=== PATIENT | male | born 1970 | race Hispanic/Latino ===

== ENCOUNTER 2020-11-03 09:57 | Emergency (ER) | payer SELFPAY ==
[~2020-11-03] VITALS: Ht 172.7 cm; Wt 81.0 kg
[~2020-11-03 09:57] MED LIST: ATENOLOL25 MG PO; AUGMENTIN875TAB PO; HYDROCHLOROT25 MG PO; METHIMAZOLE10 MG PO; TAPAZOLE10 MG PO; ULTRAM50 M1 PO
[2020-11-03 12:16] LABS: HEMATOCRIT 47.1 % (39.0-50.0); HEMOGLOBIN 15.3 g/dl (14.0-18.0); IMMATURE GRANULOCYTES 0.3 % (0.0-5.0); MEAN CELL VOLUME 81.6 fL CALC (80.0-100.0); MEAN CORPUSCULAR HGB 26.5 pG CALC (26.0-32.0); MEAN CORPUSCULAR HGB CONC 32.5 g/dL CAL (32.0-36.0); NEUT# 5.19 thou/uL (1.82-7.42); RED BLOOD COUNT 5.77 mill/uL (4.70-6.10); RED CELL DISTRI WIDTH 14.6 % (11.5-15.5)
[2020-11-03 12:28] LABS: ALKALINE PHOSPHATASE 206 u/l (38-126); ANION GAP 10 (6-22 (CALC)); BILIRUBIN, TOTAL 1.4 mg/dL (0.0-1.4); BUN 12 mg/dL (9-20); BUN/CREATININE RATIO 26 (12-20 (CALC)); CARBON DIOXIDE 28 mmol/l (22-30); CHLORIDE 103 mmol/l (95-108); CREATININE 0.4 mg/dL (0.7-1.3); GFR > 60 ML/MIN (>=60 (CALC)); GFR FOR AFR.AMER. > 60 ML/MIN (>=60 (CALC)); SGOT/AST 47 u/l (17-59); SODIUM 140 mmol/l (137-146); TOTAL PROTEIN 7.7 g/dL (6.3-8.2)
[2020-11-03 12:32] LABS: C-REACTIVE PROTEIN 1.2 mg/dL (0-0.9)
[2020-11-03 12:56] LABS: TSH, 3RD GENERATION < 0.02 uIU/mL (0.47 - 4.68)
[2020-11-03 12:58] LABS: POTASSIUM 1.3 mmol/l (3.5-5.1)
[2020-11-03 13:22] LABS: URINE BILIRUBIN - DIPSTICK NEGATIVE (NEGATIVE); URINE BLOOD DIPSTICK TRACE-INTACT (NEGATIVE); URINE COLOR YELLOW; URINE GLUCOSE - DIPSTICK NEGATIVE (NEGATIVE); URINE KETONE TRACE mg/dL (NEGATIVE); URINE LEUK ESTERASE NEGATIVE (NEGATIVE); URINE NITRITE - DIPSTICK NEGATIVE (Negative); URINE PROTEIN - DIPSTICK 30 mg/dL (NEG-TRACE); URINE SPECIFIC GRAVITY 1.025; URINE UROBILINOGEN - DIPSTICK 0.2 E.U./dL (0.2)
[2020-11-03 15:05] VITALS: BP 128/62
== END 2020-11-03 15:05 | disposition short-term general hospital (02) | DRG 948 ==
LOC: ED 09:57
PROVIDERS: Emergency Medicine
DX: R53.1 Weakness (principal); E05.90 Thyrotoxicosis, unspecified without thyrotoxic crisis or storm; E87.6 Hypokalemia; I10 Essential (primary) hypertension; T46.5X6A Underdosing of other antihypertensive drugs, initial encounter; T38.2X6A Underdosing of antithyroid drugs, initial encounter; Z91.128 Patient's intentional underdosing of medication regimen for other reason; Z20.822 Contact with and (suspected) exposure to COVID-19

== ENCOUNTER 2024-09-24 05:21 | Inpatient (IN) | payer SELFPAY ==
--- NOTE | 2024-09-23 19:30 | NUR ---
RECEIVED PATIENT IN BEDSIDE REPORT. PATIENT IS REPORTED TO BE SCORING WITH INTERMITTENT SHAKING AND REQUIRES MEDICATION WITH LIBRIUM AND ATIVAN ON ASSESSMENT. AT THIS TIME PATIENT IS STABLE INTERMITTENTLY AWAKE. ITALIAN SPEAKING PATIENT - CONVERSATIONALLY EDUCATED PATIENT ON NOT GETTING UP UNASSISTED, OFFERED ASSITANCE WITH URINAL AND OFFERED WATER FOR COMFORT. PATIENT DECLINED URINAL, ACCEPTED WATER. RESTING COMFORTABLY WITH BED ALARM ENGAGED.
[2024-09-24] VITALS (45 sets, daily range): BP systolic 107–150; BP diastolic 53–100
[~2024-09-24] VITALS: Ht 172.7 cm; Wt 97.3 kg
[~2024-09-24 05:21] MED LIST changes: +BL ASPIRIN325 MG PO; +PROPRANOLOL HCL60 MG PO
--- NOTE | 2024-09-24 05:21 | NUR ---
PT TO ROOM #4 VIA EMS STRETCHER. PT TRIAGE COMPLETED. MD NOTIFIED OF PT STATUS. PT NOTED WITH MODERATE ANXIETY, PT STATES HX OF ETOH ABUSE, PT STATES HE HAD ONE ALCOHOLIC BEVRAGE X3 DAYS AGO. PT STATES THAT THE SALES SUPPORT ADMINISTRATOR TOLD HIM HE WAS ATTEMPTING TO GET INTO NEIGHBOR'S VEHICLE, PT STATES HE DOESN'T REMEMBER DOING SO. PT STATES HE FEELS UNWELL, C/O SOB, CHEST PAIN, AND FAST HEART RATE.
[2024-09-24] MEDS ORDERED: chlordiazePOXIDE HCL 25 MG CAP PO ONE (05:35)
[2024-09-24] MEDS ORDERED: SODIUM CHLORIDE 0.9% 250 ML IV PRN (05:35)
[2024-09-24] MEDS ORDERED: DILTIAZEM HCL 125 MG in SODIUM CHLORIDE 0.9% 100 ML IV ONE (05:35)
[2024-09-24] MEDS ORDERED: dilTIAZem HCL 50 MG/10 ML SDV IV ONE (05:35)
[2024-09-24 05:46] LABS: BASO% 0.5 % (0-3); EOS% 0.9 % (0-8); HEMATOCRIT 43.8 % (39.0-50.0); HEMOGLOBIN 14.2 g/dl (14.0-18.0); IMMATURE GRANULOCYTES 0.2 % (0.0-5.0); LYMPH% 15.8 % (15-41); MEAN CORPUSCULAR HGB 29.3 pG CALC (26.0-32.0); MEAN CORPUSCULAR HGB CONC 32.4 g/dL CAL (32.0-36.0); MONO% 7.9 % (2-13); NEUT# 4.35 thou/uL (1.82-7.42); NEUT% 74.7 % (42-76); RED BLOOD COUNT 4.85 mill/uL (4.70-6.10); RED CELL DISTRI WIDTH 15.8 % (11.5-15.5)
[2024-09-24 05:48] LABS: MEAN CELL VOLUME 90.3 fL CALC (80.0-100.0)
--- NOTE | 2024-09-24 06:00 | NUR ---
PT CARDIZEM TITRATED TO 15MG/HR PER FACILITY PROTOCOL/MD ORDERS.
[2024-09-24 06:02] LABS: ALBUMIN 3.9 g/dL (3.2-5.0); BUN 13 mg/dL (9-20); BUN/CREATININE RATIO 32 (12-20 (CALC)); CHLORIDE 108 mmol/l (95-108); CREATININE 0.4 mg/dL (0.7-1.3); ESTIMATED GFR 130 ML/MIN (>=90 (CALC)); ETHYL ALCOHOL 0 mg/dl (0-30); SGOT/AST 60 u/l (17-59); SODIUM 143 mmol/l (137-146); TOTAL PROTEIN 7.8 g/dL (6.3-8.2)
[2024-09-24 06:07] LABS: ALKALINE PHOSPHATASE 483 u/l (38-126); ANION GAP 16 (6-22 (CALC)); BILIRUBIN, TOTAL 2.6 mg/dL (0.2-1.3); CARBON DIOXIDE 22 mmol/l (22-30); INTERNATIONAL NORMALIZED RATIO 1.3 RATIO (0.7-1.3); POTASSIUM 3.3 mmol/l (3.5-5.1)
[2024-09-24 06:11] LABS: PROTHROMBIN TIME 13.4 SECONDS (9.0-12.5)
[2024-09-24 06:20] LABS: D-DIMER 0.59 mg/L (0.19-0.60)
[2024-09-24] MEDS ORDERED: LORazepam 2 MG/ML IV ONE (06:30)
[2024-09-24] MEDS ORDERED: POTASSIUM CHLORIDE 20 MEQ/TAB PO ONE (06:45)
--- NOTE | 2024-09-24 06:52 | NUR ---
PT MEDICATED PER MD ORDERS. PT CARDIZEM DRIP RUNNING AT 15ML PER HOUR. PT LIGHTS DIIMMED FOR COMFORT.
--- NOTE | 2024-09-24 07:02 | NUR ---
PATIENT AWAKE AND STABLE LAYING IN BED. NO DISTRESS NOTED. PATIENT DENIES ANY PAIN. PATIENT STATES THAT HE WANTS TO SLEEP. WILL CONTINUE TO MONITOR.
[2024-09-24] MEDS ORDERED: ACETAMINOPHEN 325 MG/TAB PO PRN (07:40)
[2024-09-24] MEDS ORDERED: SODIUM CHLORIDE 0.9% 1,000 ML IV PRN (07:40)
[2024-09-24] MEDS ORDERED: MAGNESIUM HYDROXIDE 30 ML UDC PO PRN (07:40)
[2024-09-24] MEDS ORDERED: chlordiazePOXIDE HCL 25 MG CAP PO PRN (07:45)
[2024-09-24] MEDS ORDERED: LORazepam 2 MG/ML IV PRN (07:45)
[2024-09-24] MEDS ORDERED: MULTIPLE VITAMIN 10 ML,THIAMINE HCL 100 MG in DEXTROSE 5% / 0.9% NACL 1,000 ML IV ONE (08:00)
--- NOTE | 2024-09-24 08:10 | NUR ---
PATIENT SLEEPING IN BED. NO DISTRESS NOTED. WILL CONTINUE TO MONITOR.
[2024-09-24] MEDS ORDERED: MULTIPLE VITAMIN 10 ML,THIAMINE HCL 100 MG in SODIUM CHLORIDE 0.9% 1,000 ML IV SCH (09:00)
[2024-09-24] MEDS ORDERED: METHIMAZOLE 5 MG/TAB PO SCH (09:00)
[2024-09-24] MEDS ORDERED: METOPROLOL SUCCINATE 50 MG/TAB PO SCH (09:00)
[2024-09-24] MEDS ORDERED: ENOXAPARIN SODIUM 100 MG/ML SYR SC SCH (09:00)
--- NOTE | 2024-09-24 09:18 | NUR ---
PATIENT AWAKE AND LAYING IN BED. PATIENT DENIES ANY PAIN. NO DISTRESS NOTED. WILL CONTINUE TO MONITOR.
--- NOTE | 2024-09-24 09:52 | NUR ---
PATIENT BROUGHT TO UNIT BY ER NURSE VIA STRETCHER. HE AMBULATED TO BED WITH ASSISTANCE. HE IS A/O X3. AFIB INT THE 120S TO 130S NOTED ON THE MONITOR. #20 NOTED IN THE LEFT AC RUNNING CARDIZEM @15. #18 NOTED IN THE LEFT FOREARM RUNNING A BANANA BAG AT THIS TIME. LUNGS CTA. BOWEL SOUNDS ACTIVE IN ALL FOUR QUADS. SKIN INTACT. NO ACUTE DISTRESS NOTED AT THIS TIME. BED LOCKED, IN LOW POSITION, CALL LIGHT WITHIN REACH.
--- NOTE | 2024-09-24 10:16 | NUR ---
TRANSPORTED TO ICU BY NURSE. PATIENT AWAKE AND ALERT. NO DISTRESS NOTED. PATIENT AMBULATED TO BED WITH ASSISTANCE. REPORT GIVEN TO HAYES GUZMÁN.
--- NOTE | 2024-09-24 11:30 | NUR ---
PATIENT NOTED TO BE AGITATED/RESTLESS, WILL MEDICATE ACCORDING TO EMAR.
--- NOTE | 2024-09-24 12:00 | NUR ---
ROUNDING COMPLETE. ASSESSMENT UNCHANGED. WILL CONTINUE TO MONITOR.
[2024-09-24] MEDS ORDERED: DILTIAZEM HCL 125 MG in SODIUM CHLORIDE 0.9% 100 ML IV PRN (13:45)
--- NOTE | 2024-09-24 14:00 | NUR ---
PATIENT LYING IN BED RESTING WITH EYES CLOSED. VITAL SIGNS STABLE. WILL CONTINUE WITH PLAN OF CARE.
--- NOTE | 2024-09-24 15:34 | NUR ---
PATIENT ASSISSTED TO BEDSIDE COMODE WITH MAX ASSIST. NO OTHER CONCERNS AT THIS TIME. TEMP 99, WILL RECHECK IN 30 MINUTES. AFIB ON THE MONITOR. WILL CONTINUE WITH PLAN OF CAR.
--- NOTE | 2024-09-24 16:43 | NUR ---
TEMP RECHECK 98.8
--- NOTE | 2024-09-24 18:09 | NUR ---
PATIENT UP TO THE SIDE OF THE BED EATING DINNER. DENIES CONCERNS AT THIS TIME. WILL REPLACE MONITOR LEADS AFTER DINNER REQUESTED BY PATIENT.
--- NOTE | 2024-09-24 21:58 | NUR ---
CIWA SCORE >20. MEDICATED WITH ATIVAN PER MD ORDERS. REPOSITIONED IN BED. PATIENT VERY AGITATED WITH VISIBLY NONEXTENSION SHAKES. REASSESSMENT IN ONE HOUR.
--- NOTE | 2024-09-24 22:52 | NUR ---
PATIENT CONTINUES TO SCORE >20. LIBRIUM ADMINISTERED ORDERED. REASSESSMENT TO BE COMPLETED IN ONE HOUR.
[2024-09-25] VITALS (41 sets, daily range): BP systolic 105–148; BP diastolic 62–109
--- NOTE | 2024-09-25 | NUR ---
PATIENT CIWA SCORE SIGNIFICANTLY REDUCED. PRESENTLY REDIRECTABLE WITH REDUCTION IN SYMPTOMS. PATIENT REMAINS STABLE WITH BED ALARM ENGAGED.
--- NOTE | 2024-09-25 02:23 | NUR ---
PATIENT OBSERVED SLEEPING, TALKING IN SLEEP AND COUGHING INTERMITTENTLY WITH NO WRETCHING OR N/V NOTED AT THIS TIME. BED ALARM ENGAGED
--- NOTE | 2024-09-25 04:25 | NUR ---
PATIENT REMAINS AT DESIREABLE LEVEL OF SYMPTOMS AT THIS TIME. PT CONTINUES TO REQUIRE CLOSE MONITORING.
--- NOTE | 2024-09-25 04:56 | NUR ---
PATIENT INCREASINGLY SYMPTOMATIC, ADMINISTERED LIBRIUM PER PRN MD ORDER. JENNIFER BLOOD FOR LAB FROM #18G IV SITE TO REDUCE STIMULATION IN ENVIRONMENT. ASSISTED TO REPOSITION, BED ALARM ENGAGED. PATIENT STABLE AT THIS TIME.
[2024-09-25 05:19] LABS: HEMOGLOBIN 12.5 g/dl (14.0-18.0); MEAN CELL VOLUME 88.8 fL CALC (80.0-100.0); MEAN CORPUSCULAR HGB 29.8 pG CALC (26.0-32.0); MEAN CORPUSCULAR HGB CONC 33.6 g/dL CAL (32.0-36.0); RED BLOOD COUNT 4.19 mill/uL (4.70-6.10); RED CELL DISTRI WIDTH 16.6 % (11.5-15.5)
[2024-09-25 05:42] LABS: BILIRUBIN, TOTAL 2.8 mg/dL (0.2-1.3); CREATININE 0.4 mg/dL (0.7-1.3); MAGNESIUM 1.6 mg/dL (1.6-2.3); POTASSIUM 3.6 mmol/l (3.5-5.1); TOTAL PROTEIN 6.5 g/dL (6.3-8.2)
[2024-09-25 05:43] LABS: HEMATOCRIT 37.2 % (39.0-50.0)
--- NOTE | 2024-09-25 06:23 | NUR ---
PATIENT REASSESSED POST MEDICATION AND IS RESTING COMFORTABLY AT THIS TIME WITH REDUCTION IN SYMPTOMS. PATIENT REPOSITIONED BUT CONTINUES TO SCOOT DOWN IN THE BED, APPEARS COMFORTABLE WITH MINIMAL ISSUES NO DISTRESS. BED ALARM ENGAGED.
--- NOTE | 2024-09-25 08:00 | NUR ---
PATIENT LYING IN BED. PATIENT ALERT AND ORIENTED TO PERSON AND PLACE. DENIES PAIN AT THIS TIME. LUNGS CLEAR TO ASCULTATION. BREATHING EVEN AND LABORED ON ROOM AIR. AFIB ON THE MONITOR WITH CARDIZEM GTT AT 15 MG/HR. STRONG PERIPHERAL PULSES. SAFETY MEASURES IN PLACE INCLUDING BED IN LOW POSITION AND CALL LIGHT RESTING NEXT TO L HAND. NO APPARENT DISTRESS NOTED. WILL CONTINUE WITH PLAN OF CARE.
[2024-09-25] MEDS ORDERED: DIATRIZOATE MEGLUMINE & SODIUM 30 ML/BTL PO ONE (09:05)
[2024-09-25] MEDS ORDERED: Barium Sulfate (Readi-Cat 2 Berry) 450 ML/BTL PO ONE (09:05)
[2024-09-25] MEDS ORDERED: ISOVUE-300 (Iopamidol) 100 ML SDV IV ONE (09:05)
[2024-09-25] MEDS ORDERED: Barium Sulfate (Readi-Cat 2 Banana) 450 ML/BTL PO ONE (09:05)
[2024-09-25 09:12] LABS: AMYLASE 65 u/l (30-110); LIPASE 70 u/l (23-300)
[2024-09-25] MEDS ORDERED: METOPROLOL SUCCINATE 50 MG/TAB PO SCH (09:30)
[2024-09-25] MEDS ORDERED: DIATRIZOATE MEGLUMINE & SODIUM 30 ML/BTL PO SCH (10:00)
--- NOTE | 2024-09-25 10:00 | NUR ---
PATIENT APPEARS TO BE RESTING WITH EYES CLOSED. NO APPARENT DISTRESS NOTED. WILL CONTINUE WITH PLAN OF CARE.
--- NOTE | 2024-09-25 11:41 | NUR ---
PATIENT PROVIDED COMPLETE BED BATH AND LINEN CHANGE. JARVIS PLACED WITH 250 mL OF FLOYD URINE NOTED. 22 RFA PLACED, FLUSHES AND DRAWS WELL. AFIB ON THE MONITOR. NO ADDITIONAL CONCERNS AT THIS TIME. WILL CONTINUE TO MONITOR.
[2024-09-25] MEDS ORDERED: PANTOPRAZOLE SODIUM Sesquihydr 40 MG/TAB PO SCH (12:00)
[2024-09-25 12:19] LABS: URINE BLOOD DIPSTICK Negative (NEGATIVE); URINE GLUCOSE - DIPSTICK Negative (NEGATIVE); URINE KETONE Trace mg/dL (NEGATIVE); URINE LEUK ESTERASE Negative (NEGATIVE); URINE NITRITE - DIPSTICK Negative (Negative); URINE PH 5.5 (4.5-8.0); URINE PROTEIN - DIPSTICK 30 mg/dL (NEG-TRACE); URINE SPECIFIC GRAVITY 1.025
[2024-09-25 12:47] LABS: URINE COLOR Dark yellow
[2024-09-25 12:48] LABS: URINE MUCUS MODERATE hpf (NONE-FEW); URINE RBC 0-2 RBC/hpf (0-5)
[2024-09-25] MEDS ORDERED: METHIMAZOLE 5 MG/TAB PO SCH (15:00)
--- NOTE | 2024-09-25 16:07 | NUR ---
PATIENT LYING IN BED. ROUNDING COMPLETE. CIWA > 9, WILL MEDICATE. NO COMPLAINTS AT THIS TIME. VSS. WILL CONTINUE WITH PLAN OF CARE.
--- NOTE | 2024-09-25 18:06 | NUR ---
PATIENT LYING IN BED RESTING WITH EYES CLOSED. VITAL SIGNS STABLE. NO APPARENT DISTRESS NOTED. WILL CONTINUE WITH PLAN OF CARE
--- NOTE | 2024-09-25 19:00 | NUR ---
ASSUMD CARE OF PATIENT FROM JOE KOO. WHILE RECIEVING REPORT PATIENT GOT OUT OF BED, PULLED OUT HIS IV ACCESS AND HAD LOOSE STOOLS ALL THE WAY TO THE BATHROOM. SN BATHED PATIENT, FIXED JARVIS CATHETER AND STARTED 2 NEW IV ACCESS POINTS. 20G IN THE LEFT FOREARM. 20G IN THE RIGHT HAND. NORMAL SALINE RESTARTED AT 100ML/HR. CARDIZEM GTT HAD BEEN WEANED OFF BY DAY SHIFT NURSE. CURRENT HR 67 AFIB. PATIENT MEDICATED WITH IV ATIVAN AND IS NOW RESTING IN BED. COTTON CLEANER ERIC KOO MADE AWARE THAT SITTER IS NEED FOR THIS PATIENT. ORDER WAS ALREADY RECIEVED BY DAY NURSE FOR A SITTER. PATIENT IS CURRENTLY IN NO DISTRESS.
--- NOTE | 2024-09-25 21:00 | NUR ---
PATIENT SLEEPING. V/S STABLE. AWOKE PATIENT FOR 2100 MEDICATIONS. PATIENT FELL RIGHT BACK TO SLEEP. IVF STILL INMFUSING THROUGH 20G IN THE NRIGHT HAND.
--- NOTE | 2024-09-25 22:41 | NUR ---
PATIENT SLEEPING. ASSESSMENT UNCHANGED . SITTER IS NOW AT THE BEDSIDE. V/S STABLE.
[2024-09-26] VITALS (50 sets, daily range): BP systolic 102–142; BP diastolic 55–95
--- NOTE | 2024-09-26 00:27 | NUR ---
PATIENT SLEEPING. NO DISTRESS. ASSESSMENT UNCHANGED. SITTER REMAINS AT BEDSIDE. IVF INFUSING AT 100ML/HR. V/S STABLE. PATIENT REMAINS AFIB WITHA RATE OF 77
--- NOTE | 2024-09-26 01:23 | NUR ---
PATIENT AWOKE AND WAS MOANING AND AGGITATED. ATIVAN 1MG GIVEN IV AT THIS TIME. A NEW BAG OF IVF INITIATED AT 100/ML PER HOUR. V/S REMAIN STABLE HR 80 AFIB
--- NOTE | 2024-09-26 02:31 | NUR ---
PATIENT RESTING. ATIVAN HAD GOOD EFFECT FOR PATIENT. V/S STABLE. NO DISTRESS.
--- NOTE | 2024-09-26 04:02 | NUR ---
PATIENT ASLEEP NO DISTRESS. V/S REMAIN STABLE. NO CHANGE IN ASSESSMENT
--- NOTE | 2024-09-26 06:00 | NUR ---
REASSESSMENT OF V/S . TEMP IS ELEVATED NOW TO 100.6. COVERS REMOVED FROM PATIENT. ICE PACK APPLIED TO BOTH AXCILLA AND BEHIND THE NECK. 2 TYLENOL (650MG) CRUSHED AND PLACED IN A SPOONFUL OF SUGAR FREE PUDDING. PATIENT IS SOMULANT. MULTIPLE ATTEMPS TO AWAKE PATIENT AND HE OPENED HIS EYES AND MOANED. HALF OF TYLENOL AND PUDDING MIXTURE TAKEN. WILL CONTINUE TO TRY TO GIVE ENTIIRE AMOUNT. PATIENT REMAINS SEDATED FROM ATIVAN 1MG GIVEN AT 0125. IVF CONTINUE AT 100ML/HR.
--- NOTE | 2024-09-26 08:00 | NUR ---
PATIENT LYING IN BED. ASSESSMENT COMPLETED. PATIENTT ALERT AND ORIENTED X 2. DENIES PAIN AT THIS TIME. LUNGS CLEAR TO ASCULTATION. BREATHING LABORED ON ROOM AIR. AFIB ON THE MONITOR. FLOYD URINE NOTED IN JARVIS. SITTER AT BEDSIDE. SAFETY MEASURES IN PLACE INCLUDING BED IN LOW POSITION AND CALL LIGHT RESTING NEXT TO L HAND. NO APPARENT DISTRESS NOTED. WILL CONTINUE WITH PLAN OF CARE.
--- NOTE | 2024-09-26 10:00 | NUR ---
PATIENT APPEARS TO BE RESTING WITH EYES CLOSED. SITTER AT BEDSIDE. VITAL SIGNS STABLE. WILL CONTINUE WITH PLAN OF CARE.
[2024-09-26 11:05] LABS: INTERNATIONAL NORMALIZED RATIO 1.3 RATIO (0.7-1.3)
[2024-09-26 11:24] LABS: PROTHROMBIN TIME 14.2 SECONDS (9.0-12.5)
--- NOTE | 2024-09-26 12:21 | NUR ---
PATIENT SITTING UP IN BED. SITTER AT BEDSIDE. TEMP 99.8, WILL MEDICATE ACCORDING TO EMAR. WILL CONTINUE WITH PLAN OF CARE.
--- NOTE | 2024-09-26 14:04 | NUR ---
PATIENT APPEARS TO BE RESTING WITH EYES CLOSEED. SITTER AT BEDSIDE. VITAL SIGNS STABLE. NO APPARENT DISTRESS NOTED. WILL CONTINUE WITH PLAN OF CARE.
--- NOTE | 2024-09-26 16:06 | NUR ---
PATIENT LYING IN BED. SITTER AT BEDSIDE. CIWA > 9, MEDICATED ACCORDING TO EMAR. TEMP 99.8, AWARE, WILL START PATIENT ON CEFEPIME AND VANCO. WILL CONTINUE TO MONITOR TEMPERATURE.
--- NOTE | 2024-09-26 17:56 | NUR ---
PATIENT LYING IN BED. SITTER AT BEDSIDE. VSS. ORDER FAXED TO [facility] FOR CEFEPIME/VANCO DOSING. WILL CONTINUE TO MONITOR.
[2024-09-26] MEDS ORDERED: VANCOMYCIN HCL IV SCH (19:20)
[2024-09-26] MEDS ORDERED: SODIUM CHLORIDE 0.9% IV SCH (19:20)
--- NOTE | 2024-09-26 19:30 | NUR ---
PATIENT RECEIVED IN NURSE HAND OFF. PATIENT REMAINS STABLE AT THIS TIME WITH NO SIGN OF DISTRESS. DENIES PAIN. IV PATENT, EDUCATION PROVIDED GUARD DRIVER LIGHT AND FALL PRECAUTIONS. DEMONSTRATED UNDERSTANDING. CALL LIGHT OBSERVED WITHIN REACH.
[2024-09-26] MEDS ORDERED: CEFEPIME HYDROCHLORIDE 2 GM in SODIUM CHLORIDE 0.9% 100 ML IV SCH (21:00)
--- NOTE | 2024-09-26 22:00 | NUR ---
PATIENT CLEANED AND HERNANDO CARE PERFORMED AFTER BM. JARVIS CARE COMPLETED. SITTER BEDSIDE ASSISTING WITH MEAL PER PT NEEDS
[2024-09-27] VITALS (46 sets, daily range): BP systolic 108–158; BP diastolic 64–112
--- NOTE | 2024-09-27 | NUR ---
PATIENT REQUIRES CONSISTENT REDIRECTION, INCREASE IN AGITATION BUT RESPONDS TO CONSTANT REDIRECTION
--- NOTE | 2024-09-27 01:52 | NUR ---
CLEANED PATIENT, MEDICATION ADMINISTERED IN ACCORDANCE WITH CIWA SCORING. REPOSITIONED FOR COMFORT.
--- NOTE | 2024-09-27 04:37 | NUR ---
PATIENT STABLE, NO COMPLAINTS WITH SITTER BEDSIDE AND CALL LIGHT IN REACH
[2024-09-27] MEDS ORDERED: SODIUM CHLORIDE 0.9% 250 ML IV ONE (05:06)
[2024-09-27 05:52] LABS: BASO% 0.5 % (0-3); EOS% 3.6 % (0-8); HEMATOCRIT 37.7 % (39.0-50.0); HEMOGLOBIN 12.3 g/dl (14.0-18.0); IMMATURE GRANULOCYTES 0.2 % (0.0-5.0); MEAN CELL VOLUME 90.4 fL CALC (80.0-100.0); MEAN CORPUSCULAR HGB 29.5 pG CALC (26.0-32.0); MEAN CORPUSCULAR HGB CONC 32.6 g/dL CAL (32.0-36.0); MONO% 14.4 % (2-13); NEUT# 4.83 thou/uL (1.82-7.42); NEUT% 60.3 % (42-76); RED BLOOD COUNT 4.17 mill/uL (4.70-6.10); RED CELL DISTRI WIDTH 16.6 % (11.5-15.5)
[2024-09-27 05:55] LABS: ALBUMIN 2.8 g/dL (3.2-5.0); BILIRUBIN, TOTAL 2.9 mg/dL (0.2-1.3); CREATININE 0.5 mg/dL (0.7-1.3); MAGNESIUM 1.9 mg/dL (1.6-2.3); TOTAL PROTEIN 6.3 g/dL (6.3-8.2)
[2024-09-27] MEDS ORDERED: VANCOMYCIN HCL 1.25 GM in SODIUM CHLORIDE 0.9% 250 ML IV SCH ×3 (06:00→14:00)
[2024-09-27 06:11] LABS: POTASSIUM 4.5 mmol/l (3.5-5.1)
--- NOTE | 2024-09-27 08:00 | NUR ---
REPORT RECEIVED FROM NIGHT NURSE. AXO TO PERSON AND PLACE, REORIENTED TO TIME. S1S2 NOTED, A-FIB ON TELE. LUNG SOUNDS CLEAR, NO COUGH OR SOB NOTED. ABDOMEN SOFT, NON DISTENDED, NON TENDER, WITH ACTIVE BOWEL SOUNDS. PULSES STRONG IN ALL EXTREMITIES. JARVIS IN PLACE AND DRAINING. SKIN WDI. SITTER AT BEDSIDE. FRIEND AT BEDSIDE.
[2024-09-27] MEDS ORDERED: CEFEPIME HYDROCHLORIDE 2 GM in SODIUM CHLORIDE 0.9% 100 ML IV SCH (09:00)
--- NOTE | 2024-09-27 10:00 | NUR ---
PATIENT LAYING DOWN IN BED. CALL LIGHT IN REACH. SITTER AT BEDSIDE.
--- NOTE | 2024-09-27 12:00 | NUR ---
PATIENT LAYING DOWN IN BED ASLEEP. ALL NEEDS MET. CALL LIGHT IN REACH. SITTER AT BEDSIDE.
--- NOTE | 2024-09-27 14:00 | NUR ---
PATIENT SITTING UP IN BED RESTING WITH EYES CLOSED. ALL NEEDS MET. CALL LIGHT IN REACH. SITTER AT BEDSIDE.
--- NOTE | 2024-09-27 16:00 | NUR ---
PATIENT LAYING DOWN IN BED RESTING. ALL NEEDS MET. CALL LIGHT IN REACH. SITTER AT BEDSIDE.
--- NOTE | 2024-09-27 17:45 | NUR ---
NOTIFIED PATIENT HR SUSTAINING 110-130S. NO NEW ORDERS.
--- NOTE | 2024-09-27 18:00 | NUR ---
PATIENT SITTING UP IN BED. ALL NEEDS MET .CALL LIGHT IN REACH.
--- NOTE | 2024-09-27 19:30 | NUR ---
drowsy. no apparent distress. translated per yong. nurse monitoring shows a fib. ivf infusing well per rt wrist site. carvalho cath in place. urine cloudy reshma. temp 102.1. tylenol 650mg po given. fluids encouraged & candi well.
--- NOTE | 2024-09-27 20:55 | NUR ---
xray here. pcxr obtained.
[2024-09-27] MEDS ORDERED: METOPROLOL SUCCINATE 50 MG/TAB PO SCH (21:00)
--- NOTE | 2024-09-27 22:00 | NUR ---
has been assisted to bsc x2 assists. pt requires much assist for transfer as he is weak.
[2024-09-28] VITALS (20 sets, daily range): BP systolic 95–144; BP diastolic 58–92
[2024-09-28] MEDS ORDERED: PIPERACILLIN Sodium-Tazobactam 3.375 GM in SODIUM CHLORIDE 0.9% 100 ML IV SCH
--- NOTE | 2024-09-28 00:01 | NUR ---
awake. has periods of non prod coughing. no resp dif.
--- NOTE | 2024-09-28 02:00 | NUR ---
resting quietly. no distress.
--- NOTE | 2024-09-28 04:00 | NUR ---
eyes closed. no disress. sitter remains @ bedside.
[2024-09-28 05:30] LABS: HEMOGLOBIN 12.3 g/dl (14.0-18.0); MEAN CELL VOLUME 92.2 fL CALC (80.0-100.0); MEAN CORPUSCULAR HGB 29.9 pG CALC (26.0-32.0); MEAN CORPUSCULAR HGB CONC 32.4 g/dL CAL (32.0-36.0); RED BLOOD COUNT 4.12 mill/uL (4.70-6.10); RED CELL DISTRI WIDTH 16.3 % (11.5-15.5)
[2024-09-28 05:54] LABS: ALBUMIN 2.5 g/dL (3.2-5.0); BILIRUBIN, TOTAL 2.9 mg/dL (0.2-1.3); CREATININE 0.4 mg/dL (0.7-1.3); TOTAL PROTEIN 5.9 g/dL (6.3-8.2)
[2024-09-28 06:00] LABS: MAGNESIUM 1.4 mg/dL (1.6-2.3); POTASSIUM 3.4 mmol/l (3.5-5.1)
--- NOTE | 2024-09-28 06:00 | NUR ---
less drowsy this am. denies distress. cardiac surgeon shows a fib.
[2024-09-28] MEDS ORDERED: GUAIFENESIN 200 MG/10 ML UDC PO PRN (07:10)
--- NOTE | 2024-09-28 07:58 | NUR ---
REPORT RECEIVED FROM NIGHT NURSE. PT INITIALLY ADMITTED DUE TO ETOH AND AFIB RVR. PT DOES HAVE PNA WELL SEEN ON CXR. PT ASSESSED BY DR. NUR THIS MORNING. PT IS A/O. LUNGS CRACKLES THROUGHOUT; PT HAS PRODUCTIVE COUGH. ON RA. HEART SOUNDS S1S2; PT IS AFIB CONTROLLED RATE ON MONITOR. BS ACTIVE. ABDOMEN DISTENDED/SOFT. PULSES STRONG ALL EXTREMETIES; NO EDEMA. SKIN W/M; PT HAS SKIN ALTERATION ON LEFT FA; PT STATES IS FROM [place]. AFEBRILE. PT HAS SITTER AT BEDSIDE. CALL LIGHT IN REACH. VSS.
[2024-09-28] MEDS ORDERED: POTASSIUM CHLORIDE 20 MEQ/TAB PO SCH (08:00)
[2024-09-28] MEDS ORDERED: MAGNESIUM SULFATE HEPTAHYDRATE 50 ML IV SCH (08:00)
[2024-09-28] MEDS ORDERED: ASPIRIN 325 MG/TAB PO SCH (09:00)
--- NOTE | 2024-09-28 10:00 | NUR ---
NO CHANGES TO PT STATUS. SITTER REMAINS AT BEDSIDE. VSS.
--- NOTE | 2024-09-28 12:00 | NUR ---
PT ASSISTED BY SITTER TO EAT LUNCH.
--- NOTE | 2024-09-28 12:27 | NUR ---
PT GIVEN BED BATH AND LINENS CHANGED. PT REPOSITIONED FOR COMFORT. SITTER REMAINS AT BEDSIDE. CALL LIGHT IN REACH. VSS.
[2024-09-28] MEDS ORDERED: SODIUM CHLORIDE 0.9% 1,000 ML IV PRN (12:50)
--- NOTE | 2024-09-28 14:27 | NUR ---
PT C/O COUGH. PT GIVEN PRN ROBITUSSEN PER DEC. PT REPOSITIONED TO SIT UP STRAIGHTER IN BED. DENIES ANY OTHER NEEDS. CALL LIGHT IN REACH. VSS.
--- NOTE | 2024-09-28 16:00 | NUR ---
NO CHANGES TO PT STATUS. ASLEEP IN BED. SITTER AT BEDSIDE. VSS.
--- NOTE | 2024-09-28 18:00 | NUR ---
PT ATE DINNER WITH ASSISTANCE OF SITTER. PT THEN 2 PERSON ASSIST TO USE COMMODE. PT HAD BM AND THEN ASSISTED BACK TO BED. CALL LIGHT IN REACH. VSS.
--- NOTE | 2024-09-28 19:30 | NUR ---
remains drowsy when awakened. translated per blood tester fowl. denies distress. athletic monitor shows a fib. ivf infusing per rt wrist site. po fluids taken well. carvalho cath in place. urine reshma colored. sitter @ bedside. fall precutions cont.
--- NOTE | 2024-09-28 22:00 | NUR ---
eyes closed. no distress.
[2024-09-29] VITALS (23 sets, daily range): BP systolic 65–152; BP diastolic 45–103
--- NOTE | 2024-09-29 00:01 | NUR ---
eyes closed. no distress. radiation monitor shows sinus rhythm.
--- NOTE | 2024-09-29 02:00 | NUR ---
resting quietly. no apparent distress. pvc monitor shows a fib.
--- NOTE | 2024-09-29 04:00 | NUR ---
eyes closed. no distress. sitter remains @ bedside.
--- NOTE | 2024-09-29 04:55 | NUR ---
lab here. blood drawn.
[2024-09-29 05:30] LABS: HEMATOCRIT 39.1 % (39.0-50.0); HEMOGLOBIN 12.4 g/dl (14.0-18.0); MEAN CELL VOLUME 92.9 fL CALC (80.0-100.0); MEAN CORPUSCULAR HGB 29.5 pG CALC (26.0-32.0); MEAN CORPUSCULAR HGB CONC 31.7 g/dL CAL (32.0-36.0); RED BLOOD COUNT 4.21 mill/uL (4.70-6.10); RED CELL DISTRI WIDTH 16.4 % (11.5-15.5)
[2024-09-29 05:39] LABS: ALBUMIN 2.3 g/dL (3.2-5.0); CREATININE 0.5 mg/dL (0.7-1.3); MAGNESIUM 1.5 mg/dL (1.6-2.3); POTASSIUM 3.8 mmol/l (3.5-5.1); TOTAL PROTEIN 5.6 g/dL (6.3-8.2)
[2024-09-29 06:13] LABS: BILIRUBIN, TOTAL 1.7 mg/dL (0.2-1.3)
[2024-09-29] MEDS ORDERED: IPRATROPIUM-Albuterol 0.5MG-2.5MG/3 ML NEB PRN (07:25)
--- NOTE | 2024-09-29 07:36 | NUR ---
PT SITTING UP IN BED, SITTER AT BEDSIDE, PT COUGHING TELLS THE DOCTOR, HE THINKS HE ATE SOME GRAPES THAT IS THE WHY HE IS COUGHING , ORDER TO KEEP FLUIDS TO KVO AND ADDING LASIX. DENIES ANY COMPLAINTS. WILL CONTINUE TO MONITER..
[2024-09-29] MEDS ORDERED: FUROSEMIDE 40 MG/4 ML SDV IV SCH (08:00)
[2024-09-29] MEDS ORDERED: methylPREDNISolone Sod Succ 40 MG/ML SDV IV SCH (09:00)
[2024-09-29] MEDS ORDERED: MAGNESIUM SULFATE HEPTAHYDRATE 50 ML IV SCH (10:00)
--- NOTE | 2024-09-29 10:55 | NUR ---
PT HAS FRIENDS THAT WORK WITH HIM AT BEDSIDE. PT STATES HE HAS BEEN LIVING IN A TENT UNDER A TREE FOR LAST TWO WEEKS SINCE HE HAD TO MOVE OUT OF THE TRAILER BECAUSE TOO MANY PEOPLE WERE LIVING UNDER ROOF . HE IS HERE FROM [place]ING
--- NOTE | 2024-09-29 13:14 | NUR ---
PT SITTING UP IN CHAIR. PT HAS APPROX 1500 OUTPUT OF URINE, DENIES ANY COMPLAINT AT THIS TIME.
--- NOTE | 2024-09-29 15:55 | NUR ---
CIWA HAS BEEN A 0 THRUOUGHT DAY. PT CALM AND ANSWERING QUESTIONS APPROPRIATELY. AFTER LASIX GIVEN EARLIER, PT HAS HAD APPROXIMATELY 1800 OUT IN URINE, JARVIS BAG EMPTIED. WHEEZING AND COUGHING HEARD THIS AM, IS NOT HEARD AT THIS TIME. PT RESTING QUIETLY ON BED.
--- NOTE | 2024-09-29 19:20 | NUR ---
pt standing @ bedside. assisted to bsc for bm then back to bed. denies distress. laboratory monitor shows a fib. saline lock x2 in place. po fluids taken well. carvalho cath in place. urine reshma colored. bed alarm activated.
--- NOTE | 2024-09-29 22:00 | NUR ---
awake. no distress. case monitor shows a fib.
[2024-09-30] VITALS (13 sets, daily range): BP systolic 109–155; BP diastolic 68–90
--- NOTE | 2024-09-30 00:01 | NUR ---
awake. no distress. caravlho draining well.
--- NOTE | 2024-09-30 02:00 | NUR ---
resting quietly. no distress. refinery operator vapor recovery unit shows a fib pvcs.
--- NOTE | 2024-09-30 05:30 | NUR ---
lab here. blood drawn.
[2024-09-30 05:40] LABS: HEMATOCRIT 39.7 % (39.0-50.0); HEMOGLOBIN 13.1 g/dl (14.0-18.0); MEAN CELL VOLUME 89.4 fL CALC (80.0-100.0); MEAN CORPUSCULAR HGB 29.5 pG CALC (26.0-32.0); RED BLOOD COUNT 4.44 mill/uL (4.70-6.10); RED CELL DISTRI WIDTH 15.7 % (11.5-15.5)
[2024-09-30 06:10] LABS: ALBUMIN 2.4 g/dL (3.2-5.0); BILIRUBIN, TOTAL 1.8 mg/dL (0.2-1.3); CREATININE 0.3 mg/dL (0.7-1.3); MAGNESIUM 1.6 mg/dL (1.6-2.3); TOTAL PROTEIN 5.9 g/dL (6.3-8.2)
[2024-09-30 06:12] LABS: POTASSIUM 4.6 mmol/l (3.5-5.1)
--- NOTE | 2024-09-30 07:37 | NUR ---
PT REPORT RECEIVED, PT RESTING QUIETLY ON BED, VITAL SIGNS STABLE. DR. NUR SPEAKING WITH PT, WE WILL GET PT UP TO WALK THIS AM, TO MAKE SURE HE IS ABLE TO BE DISCHARGED TODAY.
[2024-09-30] MEDS ORDERED: PREDNISONE10 MG PO (12:31)
[2024-09-30] MEDS ORDERED: ASPIRIN ADULT L81 M2 PO (12:31)
[2024-09-30] MEDS ORDERED: AMOX/K CLAV875 M1 PO (12:31)
[2024-09-30] MEDS ORDERED: METHIMAZOLE5 MG PO (12:31)
[2024-09-30] MEDS ORDERED: GUAIFENESI100 MG/51 PO (12:31)
[2024-09-30] MEDS ORDERED: METOPROLOL100 M1 PO (12:34)
--- NOTE | 2024-09-30 14:18 | NUR ---
PT WAS GIVEN DONATED CLOTHES TO WEAR, ALL MEDICATIONS FOR THE MONTH OBTAINED FROM [facility], PT UNABLE TO GIVE TELEPHONE NUMBER FOR ANYONE TO PICK HIM UP FOR DISCHARGE. SALVATIONIST RINA OTT. NAHED IV'S D//C, PT TOLERATED WELL, JARVIS REMOVED. DISCHARGE PAPERES GIVEN AND PT VOICES UNDERSSTANDING. RUDOLPH CALLED FOR DISCHARGE TO [facility] TENT
== END 2024-09-30 14:30 | disposition home or self-care (01) | DRG 308 ==
LOC: ED 05:21 → ED-I 06:13 → ED 07:45 → ICU 07:46
PROVIDERS: Family Medicine; Internal Medicine; ADMIT Internal Medicine; ATTEND Internal Medicine
DX: I48.91 Unspecified atrial fibrillation (principal); J18.9 Pneumonia, unspecified organism; F10.139 Alcohol abuse with withdrawal, unspecified; Z59.00 Homelessness unspecified; E46 Unspecified protein-calorie malnutrition; I10 Essential (primary) hypertension; E87.6 Hypokalemia; E05.80 Other thyrotoxicosis without thyrotoxic crisis or storm; K70.10 Alcoholic hepatitis without ascites; Y90.0 Blood alcohol level of less than 20 mg/100 ml; D69.59 Other secondary thrombocytopenia; E83.42 Hypomagnesemia; Z68.28 Body mass index [BMI] 28.0-28.9, adult
CPT/HCPCS: J0692; J1650; J1940; J2060; J2543; J3475; Q9967

== ENCOUNTER 2024-10-04 11:38 | Observation (INO) | payer SELFPAY ==
[2024-10-04] VITALS (20 sets, daily range): BP systolic 86–127; BP diastolic 27–71
[~2024-10-04] VITALS: Ht 172.7 cm; Wt 81.0 kg
[~2024-10-04 11:38] MED LIST changes: +AMOX/K CLAV875 M1 PO; +ASPIRIN ADULT L81 M2 PO; +GUAIFENESI100 MG/51 PO; +METHIMAZOLE5 MG PO; +METOPROLOL100 M1 PO; +PREDNISONE10 MG PO
[2024-10-04] MEDS ORDERED: SODIUM CHLORIDE 0.9% 250 ML IV ONE (12:15)
[2024-10-04] MEDS ORDERED: dilTIAZem HCL 50 MG/10 ML SDV IV ONE (12:15)
[2024-10-04] MEDS ORDERED: SODIUM CHLORIDE 0.9% 1,000 ML IV ONE (12:15)
[2024-10-04] MEDS ORDERED: DILTIAZEM HCL 125 MG in SODIUM CHLORIDE 0.9% 100 ML IV ONE (12:15)
[2024-10-04 12:49] LABS: BASO% 0.2 % (0-3); EOS% 3.4 % (0-8); HEMATOCRIT 41.4 % (39.0-50.0); HEMOGLOBIN 13.1 g/dl (14.0-18.0); IMMATURE GRANULOCYTES 0.3 % (0.0-5.0); MEAN CELL VOLUME 91.2 fL CALC (80.0-100.0); MEAN CORPUSCULAR HGB 28.9 pG CALC (26.0-32.0); MEAN CORPUSCULAR HGB CONC 31.6 g/dL CAL (32.0-36.0); MONO% 5.5 % (2-13); NEUT# 4.38 thou/uL (1.82-7.42); NEUT% 75.6 % (42-76); RED BLOOD COUNT 4.54 mill/uL (4.70-6.10); RED CELL DISTRI WIDTH 16.2 % (11.5-15.5)
[2024-10-04 12:55] LABS: INTERNATIONAL NORMALIZED RATIO 1.3 RATIO (0.7-1.3)
[2024-10-04 12:59] LABS: ALBUMIN 2.9 g/dL (3.2-5.0); ALKALINE PHOSPHATASE 402 u/l (38-126); ANION GAP 12 (6-22 (CALC)); BILIRUBIN, TOTAL 1.5 mg/dL (0.2-1.3); BUN 10 mg/dL (9-20); BUN/CREATININE RATIO 29 (12-20 (CALC)); CARBON DIOXIDE 27 mmol/l (22-30); CHLORIDE 104 mmol/l (95-108); CREATININE 0.3 mg/dL (0.7-1.3); ESTIMATED GFR 142 ML/MIN (>=90 (CALC)); ETHYL ALCOHOL 0 mg/dl (0-30); POTASSIUM 4.6 mmol/l (3.5-5.1); SGOT/AST 42 u/l (17-59); SODIUM 138 mmol/l (137-146); TOTAL PROTEIN 6.5 g/dL (6.3-8.2)
[2024-10-04 13:00] LABS: PROTHROMBIN TIME 13.6 SECONDS (9.0-12.5)
[2024-10-04 13:52] LABS: URINE BILIRUBIN - DIPSTICK Negative (NEGATIVE); URINE BLOOD DIPSTICK Negative (NEGATIVE); URINE GLUCOSE - DIPSTICK Negative (NEGATIVE); URINE KETONE Negative (NEGATIVE); URINE LEUK ESTERASE Negative (NEGATIVE); URINE NITRITE - DIPSTICK Negative (Negative); URINE PH 7.5 (4.5-8.0); URINE PROTEIN - DIPSTICK Negative (NEG-TRACE); URINE UROBILINOGEN - DIPSTICK 0.2 E.U./dL (0.2)
[2024-10-04 13:55] LABS: URINE COLOR Yellow
[2024-10-04] MEDS ORDERED: ACETAMINOPHEN 325 MG/TAB PO PRN (15:20)
[2024-10-04] MEDS ORDERED: MAGNESIUM HYDROXIDE 30 ML UDC PO PRN (15:20)
[2024-10-04] MEDS ORDERED: METOPROLOL SUCCINATE 100 MG/TAB PO SCH ×2 (16:00→21:08)
[2024-10-04] MEDS ORDERED: METHIMAZOLE 5 MG/TAB PO SCH (21:00)
[2024-10-05] VITALS (46 sets, daily range): BP systolic 58–125; BP diastolic 12–80
[2024-10-05 05:16] LABS: HEMATOCRIT 36.5 % (39.0-50.0); HEMOGLOBIN 12.1 g/dl (14.0-18.0); MEAN CELL VOLUME 90.1 fL CALC (80.0-100.0); MEAN CORPUSCULAR HGB 29.9 pG CALC (26.0-32.0); MEAN CORPUSCULAR HGB CONC 33.2 g/dL CAL (32.0-36.0); RED BLOOD COUNT 4.05 mill/uL (4.70-6.10); RED CELL DISTRI WIDTH 16.3 % (11.5-15.5)
[2024-10-05 05:21] LABS: ALBUMIN 2.5 g/dL (3.2-5.0); BILIRUBIN, TOTAL 1.7 mg/dL (0.2-1.3); CREATININE 0.5 mg/dL (0.7-1.3); MAGNESIUM 1.6 mg/dL (1.6-2.3); POTASSIUM 4.3 mmol/l (3.5-5.1); TOTAL PROTEIN 5.7 g/dL (6.3-8.2)
[2024-10-05] MEDS ORDERED: ASPIRIN EC 81 MG/TAB PO SCH (09:00)
[2024-10-05] MEDS ORDERED: predniSONE 10 MG/TAB PO SCH (17:45)
[2024-10-05] MEDS ORDERED: [UNRECOGNIZED DRUG - REMARK] PO PRN (18:00)
[2024-10-05] MEDS ORDERED: METOPROLOL TARTRATE 50 MG/TAB PO SCH (21:00)
[2024-10-05] MEDS ORDERED: AMOXICILLIN & POT CLAVULANATE 875 MG/TAB PO SCH (21:00)
[2024-10-06] VITALS (24 sets, daily range): BP systolic 65–124; BP diastolic 47–82
[2024-10-06 05:45] LABS: ALBUMIN 2.6 g/dL (3.2-5.0); BILIRUBIN, TOTAL 1.8 mg/dL (0.2-1.3); CREATININE 0.4 mg/dL (0.7-1.3); MAGNESIUM 1.6 mg/dL (1.6-2.3); POTASSIUM 4.3 mmol/l (3.5-5.1); TOTAL PROTEIN 5.8 g/dL (6.3-8.2)
[2024-10-06 05:46] LABS: HEMATOCRIT 37.8 % (39.0-50.0); HEMOGLOBIN 12.6 g/dl (14.0-18.0); MEAN CELL VOLUME 90.4 fL CALC (80.0-100.0); MEAN CORPUSCULAR HGB 30.1 pG CALC (26.0-32.0); MEAN CORPUSCULAR HGB CONC 33.3 g/dL CAL (32.0-36.0); RED BLOOD COUNT 4.18 mill/uL (4.70-6.10); RED CELL DISTRI WIDTH 16.3 % (11.5-15.5)
[2024-10-06] MEDS ORDERED: LOPRESSOR 550 MG/TAB PO (07:22)
[2024-10-06] MEDS ORDERED: MAGNESIUM SULFATE HEPTAHYDRATE 50 ML IV SCH (09:00)
[2024-10-06] MEDS ORDERED: AMOXICILLIN & POT CLAVULANATE 875 MG/TAB PO SCH (09:00)
[2024-10-06] MEDS ORDERED: PANTOPRAZOLE SODIUM Sesquihydr 40 MG/TAB PO SCH (09:00)
== END 2024-10-06 12:02 | disposition home or self-care (01) | DRG 308 ==
LOC: ED 11:38 → ED-I 13:00 → ED 15:20 → ED-I 15:20 → ICU 15:21 → ED 15:21 → ICU 10-06 12:02
PROVIDERS: Nurse Practitioner; ADMIT Internal Medicine; ATTEND Internal Medicine
DX: I48.91 Unspecified atrial fibrillation (principal); J18.9 Pneumonia, unspecified organism; I10 Essential (primary) hypertension; E05.90 Thyrotoxicosis, unspecified without thyrotoxic crisis or storm; F10.20 Alcohol dependence, uncomplicated; K70.10 Alcoholic hepatitis without ascites; T38.2X6A Underdosing of antithyroid drugs, initial encounter; Z91.120 Patient's intentional underdosing of medication regimen due to financial hardship
CPT/HCPCS: J3475

== ENCOUNTER 2024-10-13 14:56 | Inpatient (IN) | payer SELFPAY ==
[~2024-10-13] VITALS: Ht 274.3 cm; Wt 98.4 kg
[2024-10-13] VITALS (24 sets, daily range): BP systolic 99–150; BP diastolic 50–76
[~2024-10-13 14:56] MED LIST changes: +LOPRESSOR 550 MG/TAB PO
--- NOTE | 2024-10-13 15:00 | NUR ---
PT TO ROOM VIA WC
[2024-10-13] MEDS ORDERED: SODIUM CHLORIDE 0.9% 1,000 ML IV ONE ×2 (15:25→17:40)
[2024-10-13] MEDS ORDERED: VANCOMYCIN HCL 1 GM in SODIUM CHLORIDE 0.9% 500 ML IV ONE (15:25)
[2024-10-13] MEDS ORDERED: CEFEPIME HYDROCHLORIDE 1 GM in SODIUM CHLORIDE 0.9% 50 ML IV ONE (15:25)
[2024-10-13 15:35] LABS: BASO% 0.1 % (0-3); HEMATOCRIT 40.5 % (39.0-50.0); HEMOGLOBIN 13.2 g/dl (14.0-18.0); IMMATURE GRANULOCYTES 0.5 % (0.0-5.0); LYMPH% 4.7 % (15-41); MEAN CELL VOLUME 90.4 fL CALC (80.0-100.0); MEAN CORPUSCULAR HGB 29.5 pG CALC (26.0-32.0); MEAN CORPUSCULAR HGB CONC 32.6 g/dL CAL (32.0-36.0); MONO% 4.2 % (2-13); NEUT# 19.6 thou/uL (1.82-7.42); NEUT% 90.5 % (42-76); RED BLOOD COUNT 4.48 mill/uL (4.70-6.10); RED CELL DISTRI WIDTH 16.7 % (11.5-15.5)
[2024-10-13 15:44] LABS: CREATININE 0.4 mg/dL (0.7-1.3); POTASSIUM 3.6 mmol/l (3.5-5.1)
[2024-10-13 15:49] LABS: ALBUMIN 3.7 g/dL (3.2-5.0); BILIRUBIN, TOTAL 3.1 mg/dL (0.2-1.3); TOTAL PROTEIN 7.4 g/dL (6.3-8.2)
[2024-10-13] MEDS ORDERED: KETOROLAC TROMETHAMINE 30 MG/ML SDV IV ONE (15:55)
--- NOTE | 2024-10-13 16:12 | NUR ---
PT UPDATED ON STATUS.
--- NOTE | 2024-10-13 17:59 | NUR ---
PT ASSISTED TO RR, NO NEEDS AT THIS TIME.
--- NOTE | 2024-10-13 19:20 | NUR ---
PT RESTING. AWAITING ADMISSION. ASSUMED CARE. A/O NAD. RESP EASY REG. NAD. NO C/O
--- NOTE | 2024-10-13 19:55 | NUR ---
REPORT TO HAYES DE LEON/MED-SURG.
--- NOTE | 2024-10-13 20:40 | NUR ---
ATTEMPTED TO CALL REPORT. NURSE WILL CALL BACK.
--- NOTE | 2024-10-13 21:02 | NUR ---
PT TO FLOOR VIA W/C BY Rashaun SUAREZ
[2024-10-13] MEDS ORDERED: MAGNESIUM HYDROXIDE 30 ML UDC PO PRN (21:15)
[2024-10-13] MEDS ORDERED: SODIUM CHLORIDE 0.9% 1,000 ML IV PRN (21:15)
[2024-10-13] MEDS ORDERED: ACETAMINOPHEN 325 MG/TAB PO PRN (21:15)
[2024-10-13] MEDS ORDERED: METOPROLOL TARTRATE 50 MG/TAB PO SCH (21:16)
[2024-10-13] MEDS ORDERED: METHIMAZOLE 5 MG/TAB PO SCH (21:17)
--- NOTE | 2024-10-13 22:00 | NUR ---
PATIENT ADMITTED FROM ER VIA WHEELCHAIR WITH ER STAFF IN ATTENDANCE. PATIENT ABLE TO TRANSFER TO THE BED. PATIENT IS MOSTLY [place] SPEAKING-SPEAK VERY LITTLE [place]ESE. BUBBA DEGROOT WAS ABLE TO ASSIST WITH TRANSLATION. PATIENT WAS ADMITTED FOR RIGHT LEG CELLULITIS, PNEUMONIA AND SEPSIS. RECEIVED ANTIBIOTICS IN ER. ALERT AND ORIENTEDX3. PATIENT HAS BEEN HOSPITALIZED HERE AT [facility] AT LEAST A COUPLE OF TIMES RECENTLY. PATIENT STATES THAT HE IS HOMELESS AND HAS ONLY BEEN ABLE TO TAKE HIS ASA AND METOPROLOL THAT HE WAS GIVEN UPON DISCHARGE BECAUSE HE COULD NOT AFFORD THE OTHERS. RIGHT LEG IS SWOLLEN, RED, WARM AND PAINFUL TO TOUCH. ELEVATED ONE PILLOWS. PULSES TO BLE ARE STRONG. LUNGS ARE CLEAR. ABD IS SOFT WITH ACTIVE BS. LAST BM WAS YESTERDAY 10/12. DENIES ANY DIFFICULTY WITH URINATION AND OBTAINED URINE SPEC AND SENT TO LAB. PROVIDED WITH DINNER MEAL AND DRINKS. SALINE LOCK TO LEFT AC INTACT WITH GOOD BLOOD RETURN WHEN FLUSHED. ORIENTED PAIENT TO ROOM AND SURROUNDINGS. INSTRUCTED ON USE OF NURSE CALL LIGHT SYSTEM AND TV REMOTE. SAFETY PRECAUTIONS REINFORCED. CALL LIGHT IN REACH. WILL CONT TO MONITOR. M
[2024-10-13 22:21] LABS: URINE BILIRUBIN - DIPSTICK Negative (NEGATIVE); URINE BLOOD DIPSTICK Small (NEGATIVE); URINE GLUCOSE - DIPSTICK Negative (NEGATIVE); URINE KETONE Trace mg/dL (NEGATIVE); URINE LEUK ESTERASE Negative (NEGATIVE); URINE NITRITE - DIPSTICK Negative (Negative); URINE PH 5.5 (4.5-8.0); URINE PROTEIN - DIPSTICK Negative (NEG-TRACE); URINE SPECIFIC GRAVITY >=1.030; URINE UROBILINOGEN - DIPSTICK 0.2 E.U./dL (0.2)
[2024-10-13 22:28] LABS: URINE COLOR Yellow; URINE RBC 0-2 RBC/hpf (0-5); URINE WBC 0-2 WBC/hpf (0-5)
[2024-10-14 00:01] VITALS: BP 102/56
--- NOTE | 2024-10-14 00:15 | NUR ---
PATIENT RESTING IN BED-TEMP 101.2-MEDICATED WITH TYLENOL 650MG PO FOR TEMP. IVF NS PATENT AND INFUSING VIA LEFT AC SITE AT 100CC/HR. TELE MONITOR IN PLACE. CALL LIGHT IN REACH. WILL CONT TO MONITOR.
[2024-10-14 01:53] VITALS: BP 101/61
--- NOTE | 2024-10-14 02:00 | NUR ---
RESTING IN BED WITH EYES CLOSED. RESPS ARE EVEN AND UNLABORED. TEMP IS DOWN TO 99.0 AT THIS TIME. IVFR NS PATENT AND INFUSING ORDERED AT 100CC/HR. TELE IN PLACE. CALL LIGHT IN REACH. WILL CONT TO MONITOR.
[2024-10-14] MEDS ORDERED: CEFEPIME HYDROCHLORIDE 1 GM in SODIUM CHLORIDE 0.9% 50 ML IV SCH (04:00)
[2024-10-14 04:42] VITALS: BP 101/60
--- NOTE | 2024-10-14 05:00 | NUR ---
PATIENT RESTING IN BED WITH EYES CLOSED. RESPS ARE EVEN AND UNLABORED. IVF NS PATENT AND INFUSING VIA LEFT AC SITE AT 100CC/HR. TELE MONITOR IN PLACE-SR-60'S WITH PAC'S. BLE ELEVATED ON PILLOWS. CALL LIGHT IN REACH. WILL CONT TO MONITOR.
--- NOTE | 2024-10-14 07:47 | NUR ---
PATIENT SITTING UP IN BED EATING BREAKFAST. BREATHING UNLABORED ON ROOM AIR. TELE INTACT. IV IN LAC INFUSING FLUIDS PER EMAR;SITE CLEAN AND INTACT. PT STATES TO HAVE SOME PAIN IN RLE;INFORMED PT PAIN MEDS WILL BE GIVEN WITH MORNING MEDICATION. PT DENIES ANY N/D/V AT THIS TIME. BED IN LOWEST POSITION. PERSONAL ITEMS WELL CALL LIGHT WITHIN REACH. URINAL WITHIN REACH. POC ONGOING.
[2024-10-14 07:55] LABS: BASO% 0.3 % (0-3); EOS% 3.1 % (0-8); HEMATOCRIT 37.1 % (39.0-50.0); HEMOGLOBIN 12.2 g/dl (14.0-18.0); IMMATURE GRANULOCYTES 0.2 % (0.0-5.0); LYMPH% 18.4 % (15-41); MEAN CELL VOLUME 90.3 fL CALC (80.0-100.0); MEAN CORPUSCULAR HGB 29.7 pG CALC (26.0-32.0); MEAN CORPUSCULAR HGB CONC 32.9 g/dL CAL (32.0-36.0); MONO% 10.1 % (2-13); NEUT# 6.22 thou/uL (1.82-7.42); NEUT% 67.9 % (42-76); RED BLOOD COUNT 4.11 mill/uL (4.70-6.10); RED CELL DISTRI WIDTH 16.9 % (11.5-15.5)
[2024-10-14 08:15] LABS: ALBUMIN 2.7 g/dL (3.2-5.0); BILIRUBIN, TOTAL 3.3 mg/dL (0.2-1.3); CREATININE 0.5 mg/dL (0.7-1.3); POTASSIUM 3.6 mmol/l (3.5-5.1); TOTAL PROTEIN 5.9 g/dL (6.3-8.2)
[2024-10-14] MEDS ORDERED: ASPIRIN EC 81 MG/TAB PO SCH (09:00)
[2024-10-14] MEDS ORDERED: VANCOMYCIN HCL 1 GM in SODIUM CHLORIDE 0.9% 250 ML IV SCH (10:00)
[2024-10-14 11:01] VITALS: BP 115/63
--- NOTE | 2024-10-14 11:20 | NUR ---
S: SAMIRA CALDERA is a 54 M who presents with sepsis, pneumonia, and cellulitis. O: VS: BP 115/63, P 71, RR 19,T 98 W 88.7 kg, HT 68 in, Scr= 0.5,CrCl= 130 ml/min> A: Blood culture is pending. P: Patient is on Vancomycin and Cefepime. Vancomycin ordered for pharmacy to dose. Start Vancomycin 1gm IV Q8H. Vancomycin trough is drawn before the 4th dose on 10/15 930. Vancomycin goal trough is between <15-20 mcg/ml>. Pharmacy will follow and or advise on antibiotics use as needed.
[2024-10-14] MEDS ORDERED: CEFEPIME HYDROCHLORIDE 2 GM in SODIUM CHLORIDE 0.9% 100 ML IV SCH (12:00)
--- NOTE | 2024-10-14 12:12 | NUR ---
PATIENT UP SITTING IN RECLINER WATCHING TV AND FINISHING LUNCH. BREATHING UNLABORED ON ROOM AIR. TELE INTACT. IV IN LAC INFUSING FLUIDS PER EMAR;SITE CLEAN AND INTACT. PT DENIES ANY PAIN OR N/D/V AT THIS TIME. PERSONAL ITEMS WITHIN REACH WELL CALL LIGHT. NO NEEDS AT THIS TIME. POC ONGOING.
[2024-10-14 15:51] VITALS: BP 125/60
--- NOTE | 2024-10-14 16:35 | NUR ---
PATIENT SITTING IN RECLINER WITH EYES CLOSED RESTING. BREATHING UNLABORED ON ROOM AIR. TELE INTACT. IV IN LAC INFUSING FLUIDS PER EMAR;SITE CLEAN AND INTACT. NO SIGNS OF DISTRESS OR PAIN NOTED. PERSONAL ITEMS WELL CALL LIGHT WITHIN REACH. POC ONGOING.
[2024-10-14] MEDS ORDERED: VANCOMYCIN HCL IV SCH (18:00)
[2024-10-14] MEDS ORDERED: SODIUM CHLORIDE 0.9% IV SCH (18:00)
[2024-10-14 18:43] VITALS: BP 143/73
--- NOTE | 2024-10-14 20:30 | NUR ---
PT RESTING NO DISTRESS NOTED ON ASSESSMENT. VS WNL ON RA LUNGS CLEAR. SKIN INTACT WITH RIGHT LOWER LEG SLIGHT REDNESS +1 EDEMA. PT REPORTS NO PAIN AT THIS TIME. IV FLUSHED WORKING PROPERLY WITH FLUIDS ONGOING. CALL LIGHT WITHIN REACH. PLAN OF CARE ONGOING.
[2024-10-14] MEDS ORDERED: ENOXAPARIN SODIUM 40 MG/0.4 ML SYR SC SCH (21:00)
[2024-10-15] VITALS (7 sets, daily range): BP systolic 91–131; BP diastolic 60–88
--- NOTE | 2024-10-15 | NUR ---
PT SLEEPING BREATHING EVENLY NO DISTRESS NOTED. IV INFUSION ONGOING. CALL LIGHT WITHIN REACH. PLAN OF CARE ONGOING.
--- NOTE | 2024-10-15 04:56 | NUR ---
PT SLEEPING EASILY AROUSABLE NO DISTRESS NOTED. ABX GIVEN. CALL LIGHT WITHIN REACH. PLAN OF CARE ONGOING.
[2024-10-15 05:44] LABS: ALBUMIN 2.5 g/dL (3.2-5.0); BILIRUBIN, TOTAL 2.7 mg/dL (0.2-1.3); CREATININE 0.4 mg/dL (0.7-1.3); MAGNESIUM 1.5 mg/dL (1.6-2.3); POTASSIUM 3.7 mmol/l (3.5-5.1); TOTAL PROTEIN 5.7 g/dL (6.3-8.2)
[2024-10-15 05:45] LABS: BASO% 0.4 % (0-3); EOS% 1.9 % (0-8); HEMATOCRIT 33.7 % (39.0-50.0); HEMOGLOBIN 11.2 g/dl (14.0-18.0); IMMATURE GRANULOCYTES 0.1 % (0.0-5.0); LYMPH% 20.8 % (15-41); MEAN CELL VOLUME 89.4 fL CALC (80.0-100.0); MEAN CORPUSCULAR HGB 29.7 pG CALC (26.0-32.0); MEAN CORPUSCULAR HGB CONC 33.2 g/dL CAL (32.0-36.0); MONO% 10.3 % (2-13); NEUT# 5.17 thou/uL (1.82-7.42); NEUT% 66.5 % (42-76); RED BLOOD COUNT 3.77 mill/uL (4.70-6.10); RED CELL DISTRI WIDTH 16.5 % (11.5-15.5)
[2024-10-15] MEDS ORDERED: VANCOMYCIN HCL 1,250 MG in SODIUM CHLORIDE 0.9% 225 ML IV SCH ×2 (10:30→20:00)
[2024-10-15] MEDS ORDERED: MAGNESIUM SULFATE HEPTAHYDRATE 50 ML IV SCH (11:00)
--- NOTE | 2024-10-15 11:08 | NUR ---
S: SAMIRA CALDERA is a 54 M who presents with cellulitis of right lower extremity and pneumonia. O: VS: BP 129/75, P 70, RR 18, T 97.5 W 88.7 kg, HT 68 in, Scr=0.4, CrCl= 154.1 ml/min Vancomycin trough 10/15@0940 = 7 A: Vancomycin trough level subtherapeutic. Increase in dose is warranted. P: Patient is on vancomycin 1 g IV q8h and cefepime 2 g IV q8h. Vancomycin ordered for pharmacy to dose. Increase Vancomycin 1250 mg IV Q8H. Vancomycin trough is drawn before the 4th dose on 10/16/24@0930. Vancomycin goal trough is between 15-20 mcg/ml. Pharmacy will follow and or advise on antibiotics use as needed.
--- NOTE | 2024-10-15 19:22 | NUR ---
PATIENT OBSERVED TO BE SITTING IN RECLINER WATCHING TV. BED SIDE ASSESSMENT COMPLETE. NO COMPLAINTS OF PAIN AT THIS TIME. RESP EQUAL AND UNLABORED, NO VISUAL SIGNS OF DISTRESS. BOWEL SOUNDS PRESENT IN ALL 4 QUADRANTS. SAFTY PRECAUTIONS IN PLACE. BED AT LOWEST POSITION. CALL LIGHT WITH IN REACH.
--- NOTE | 2024-10-16 01:35 | NUR ---
PATIENT IN ROOM RESTING IN BED WITH EYES CLOSED. EQUAL UNLABORED RESP. NO VISUAL SIGNS OF DISTRESS. SAFTY PRECAUTIONS IN PLACE. BED AT LOWEST POSITION. CALL LIGHT WITH IN REACH.
[2024-10-16 04:01] VITALS: BP 106/57
--- NOTE | 2024-10-16 04:33 | NUR ---
PATIENT IN ROOM RESTING ON LEFT SIDE. PATIENT HAS EQUAL UNLABORED RESP, NO VISUAL SIGNS OF DISTRESS. BED AT LOWEST POSITION. CALL LIGHT WITH IN REACH.
[2024-10-16 05:08] LABS: BASO% 0.7 % (0-3); EOS% 6.2 % (0-8); HEMATOCRIT 32.4 % (39.0-50.0); HEMOGLOBIN 10.9 g/dl (14.0-18.0); IMMATURE GRANULOCYTES 0.4 % (0.0-5.0); MEAN CELL VOLUME 90.3 fL CALC (80.0-100.0); MEAN CORPUSCULAR HGB 30.4 pG CALC (26.0-32.0); MEAN CORPUSCULAR HGB CONC 33.6 g/dL CAL (32.0-36.0); MONO% 11.3 % (2-13); NEUT# 2.24 thou/uL (1.82-7.42); NEUT% 49.4 % (42-76); RED BLOOD COUNT 3.59 mill/uL (4.70-6.10); RED CELL DISTRI WIDTH 16.2 % (11.5-15.5)
[2024-10-16 05:27] LABS: ALBUMIN 2.4 g/dL (3.2-5.0); BILIRUBIN, TOTAL 2.8 mg/dL (0.2-1.3); CREATININE 0.4 mg/dL (0.7-1.3); MAGNESIUM 1.5 mg/dL (1.6-2.3); POTASSIUM 3.4 mmol/l (3.5-5.1); TOTAL PROTEIN 5.4 g/dL (6.3-8.2)
[2024-10-16 06:57] VITALS: BP 113/60
--- NOTE | 2024-10-16 09:52 | NUR ---
VANCOMYCIN TROUGH HAS BEEN RESCHEDULED FOR 10/17/24 @6805 PHARMACY TO FOLLOW
[2024-10-16] MEDS ORDERED: VANCOMYCIN HCL 1,250 MG in SODIUM CHLORIDE 0.9% 225 ML IV SCH (13:00)
[2024-10-16 18:27] VITALS: BP 126/62
[2024-10-16 18:53] VITALS: BP 126/62
--- NOTE | 2024-10-16 19:28 | NUR ---
PATIENT IN ROOM SITING IN RECLINER WATCHING TV. PATIENT IS PANISH SPEAKING, CAN MAKE NEEDS KNOW. NONE NEEDED AT THIS TIME. BED SIDE ASSESSMENT COMPLETE. RESP EVEN AND UNLABORED. NO VISUAL SIGNS OF DISTRESS. BOWEL SOUNDS PRESESNT IN ALL 4 QUADRENTS. RIGHT LEG OBSERVED TO HAVE PITTING EDIMA +2. SAFTY PRECAUTIONS IN PLACE. BED AT LOWEST POSITION. CALL LIGHT WITH IN REACH.
--- NOTE | 2024-10-17 00:30 | NUR ---
PATIEN OBSERVED TO BE RESTING IN BED WITH EYES CLOSED. UNLABORED RESP NO VISUAL SIGNS OF DISTRESS. BED AT LOWEST POSITION. CALL LIGHT WITH IN REACH.
[2024-10-17 00:32] VITALS: BP 109/65
[2024-10-17 04:33] LABS: BASO% 0.5 % (0-3); EOS% 8.8 % (0-8); HEMATOCRIT 32.6 % (39.0-50.0); HEMOGLOBIN 11.1 g/dl (14.0-18.0); IMMATURE GRANULOCYTES 0.3 % (0.0-5.0); MEAN CELL VOLUME 89.6 fL CALC (80.0-100.0); MEAN CORPUSCULAR HGB 30.5 pG CALC (26.0-32.0); NEUT# 1.71 thou/uL (1.82-7.42); NEUT% 45.4 % (42-76); RED BLOOD COUNT 3.64 mill/uL (4.70-6.10); RED CELL DISTRI WIDTH 16.1 % (11.5-15.5)
[2024-10-17 04:36] VITALS: BP 129/72
[2024-10-17 04:36] LABS: ALBUMIN 2.6 g/dL (3.2-5.0); BILIRUBIN, TOTAL 1.8 mg/dL (0.2-1.3); CREATININE 0.5 mg/dL (0.7-1.3); MAGNESIUM 1.5 mg/dL (1.6-2.3); TOTAL PROTEIN 5.8 g/dL (6.3-8.2)
[2024-10-17 04:39] LABS: POTASSIUM 3.5 mmol/l (3.5-5.1)
--- NOTE | 2024-10-17 04:54 | NUR ---
PATIENT IN ROOM RESTING IN BED WITH EYES CLOSED. PATIENT RESPONDS TO VERBAL STIMULI. UNLABORED RESP. NO VISUAL SIGNS OF DISTRESS. BED AT LOWEST POSITION. CALL LIGHT WITH IN REACH.
--- NOTE | 2024-10-17 07:30 | NUR ---
SHIFT CHANGE REPORT, PT AWAKE ALERT AND ORIENTED SITTING UP IN RECLINER, C/O PAIN TO LEFT ELBOW WHERE ABRASIONS FOUND, IVF INFUSING, TELE MONITOR IN PLACE CALL MARTINEZ IN REACH.
[2024-10-17 07:47] VITALS: BP 128/70
[2024-10-17 10:44] VITALS: BP 108/57
--- NOTE | 2024-10-17 12:06 | NUR ---
TRANSPORTED OFF UNIT VIA W/C TO [facility] AND BACK TO UNIT AT THIS TIME RELAXING IN RECLINER, NO COMPLAINS OF DISCOMFORT.
--- NOTE | 2024-10-17 14:01 | NUR ---
S: SAMIRA CALDERA is a 54 M who presents with cellulitis of right lower extremity and pneumonia. O: VS: BP 129/75, P 70, RR 18, T 97.5 W 88.7 kg, HT 68 in, Scr=0.5, CrCl= 130 ml/min Vancomycin trough 10/17 @0430 = 12 UG/ML A: Blood culture is pending. P: Patient is on cefepime 2gm iv q8h. Vancomycin ordered for pharmacy to dose. Continue vancomycin 1250 IV Q8H. Vancomycin trough is drawn before the dose on 10/18/24 @0430 Vancomycin goal trough is between 10-20 mcg/ml. Pharmacy will follow and or advise on antibiotics use as needed.
--- NOTE | 2024-10-17 15:31 | NUR ---
UNIT SEC JUST REPORTED THAT RD JUST INFORMED HER OF PT'S HEART RATE @ 49 BPM, INFORMED AND ORDERED TO STOP LOPRESSOR NOW.
[2024-10-17 15:33] VITALS: BP 107/63
[2024-10-17 19:00] VITALS: BP 109/62
[2024-10-18 00:16] VITALS: BP 117/64
[2024-10-18 04:37] LABS: ALBUMIN 2.5 g/dL (3.2-5.0); BILIRUBIN, TOTAL 1.6 mg/dL (0.2-1.3); CREATININE 0.4 mg/dL (0.7-1.3); MAGNESIUM 1.5 mg/dL (1.6-2.3); POTASSIUM 3.4 mmol/l (3.5-5.1); TOTAL PROTEIN 5.7 g/dL (6.3-8.2)
[2024-10-18 04:46] LABS: BASO% 0.7 % (0-3); EOS% 8.3 % (0-8); HEMOGLOBIN 10.9 g/dl (14.0-18.0); IMMATURE GRANULOCYTES 0.2 % (0.0-5.0); LYMPH% 35.6 % (15-41); MEAN CELL VOLUME 91.6 fL CALC (80.0-100.0); MEAN CORPUSCULAR HGB 29.4 pG CALC (26.0-32.0); MEAN CORPUSCULAR HGB CONC 32.1 g/dL CAL (32.0-36.0); MONO% 8.3 % (2-13); NEUT# 1.92 thou/uL (1.82-7.42); NEUT% 46.9 % (42-76); RED BLOOD COUNT 3.71 mill/uL (4.70-6.10); RED CELL DISTRI WIDTH 15.8 % (11.5-15.5)
--- NOTE | 2024-10-18 06:48 | NUR ---
Patient alert oriented, complains of some pain on his R leg tylenol was given. Continue on Vanco and Maxipime.
[2024-10-18 07:44] VITALS: BP 139/67
--- NOTE | 2024-10-18 07:56 | NUR ---
SHIFT CHANGE REPORT, PT AWAKE ALERT AND ORIENTED AMBULATING IN ROOM-BR, NO C/O DISCOMFORT AT THIS TIME, IVF INFUSING, TELE MONITOR IN PLACE, CALL MARTINEZ IN REACH AND BED LOCKED IN LOWEST POSITION.
[2024-10-18] MEDS ORDERED: MAGNESIUM SULFATE HEPTAHYDRATE 50 ML IV SCH (09:00)
[2024-10-18] MEDS ORDERED: POTASSIUM CHLORIDE 20 MEQ/TAB PO SCH (09:00)
[2024-10-18] MEDS ORDERED: FUROSEMIDE 40 MG/TAB PO SCH (11:00)
[2024-10-18 11:14] VITALS: BP 107/59
--- NOTE | 2024-10-18 12:00 | NUR ---
SITTING UP IN RECLINER, NO NEW COMPLAINS.
[2024-10-18] MEDS ORDERED: VANCOMYCIN HCL 1,500 MG in SODIUM CHLORIDE 0.9% 470 ML IV SCH ×2 (13:00→18:00)
--- NOTE | 2024-10-18 14:11 | NUR ---
Discharge instructions given. Patient verbalizes understanding of same. Discharged in good condition via Ambulatory to Home with *Other. All belongings sent with pt.
--- NOTE | 2024-10-18 15:12 | NUR ---
S: SAMIRA CALDERA is a 54 M who presents with pneumonia, cellulitis, and sepsis. O: VS: BP 107/59, P 60, RR 18,T 97.8 W 88.7 kg, HT 68 in, Scr= 0.4,CrCl= 150 ml/min> A: Blood culture is pending. P: Patient is on Vancomycin and Cefepime 2gm IV q8h. Vancomycin ordered for pharmacy to dose. Vancomycin trough on 10/18 at 430 resulted at 13 mcg/ml. Increase Vancomycin to 1500 mg IV q8h. Vancomycin trough is drawn before the 4th dose on 10/19 1230. Vancomycin goal trough is between <15-20 mcg/ml>. Pharmacy will follow and or advise on antibiotics use as needed.
[2024-10-18 15:42] VITALS: BP 119/64
[2024-10-18 18:30] VITALS: BP 124/61
[2024-10-18] MEDS ORDERED: MAGNESIUM OXIDE 400 MG/TAB PO SCH (21:00)
[2024-10-19 00:56] VITALS: BP 122/65
[2024-10-19 04:59] LABS: BASO% 0.5 % (0-3); EOS% 10.3 % (0-8); HEMATOCRIT 32.8 % (39.0-50.0); HEMOGLOBIN 10.7 g/dl (14.0-18.0); IMMATURE GRANULOCYTES 0.8 % (0.0-5.0); LYMPH% 34.4 % (15-41); MEAN CELL VOLUME 90.4 fL CALC (80.0-100.0); MEAN CORPUSCULAR HGB 29.5 pG CALC (26.0-32.0); MEAN CORPUSCULAR HGB CONC 32.6 g/dL CAL (32.0-36.0); MONO% 9.8 % (2-13); NEUT# 1.76 thou/uL (1.82-7.42); NEUT% 44.2 % (42-76); RED BLOOD COUNT 3.63 mill/uL (4.70-6.10)
[2024-10-19 05:06] VITALS: BP 135/73
[2024-10-19 05:23] LABS: ALBUMIN 2.3 g/dL (3.2-5.0); BILIRUBIN, TOTAL 1.3 mg/dL (0.2-1.3); CREATININE 0.5 mg/dL (0.7-1.3); MAGNESIUM 1.3 mg/dL (1.6-2.3); POTASSIUM 3.2 mmol/l (3.5-5.1); TOTAL PROTEIN 5.5 g/dL (6.3-8.2)
[2024-10-19 07:08] VITALS: BP 138/71
--- NOTE | 2024-10-19 08:04 | NUR ---
PT IS AOX4, RESPIRATIONS ARE EVEN AND UNLABORED ON ROOM AIR, LUNGS ARE CLEAR, BOWEL SOUNDS ARE ACTIVE, PEDAL PULSES ARE PALPABLE TO TOUGH WITH RIGHT LOWER LEG PRESENTING WITH 2+ PITTING EDEMA, LEFT LOWER LEG WITH +1 NON-PITTING EDEMA, PT REPORTS PAIN IN LEFT LEG AT A 5 ON A 0-10 PAIN SCA;E, WAS GIVEN TYLENOL BY SEAT COVER CUTTER BEFORE SHIFT CHANGE.
[2024-10-19] MEDS ORDERED: MAGNESIUM SULFATE HEPTAHYDRATE 100 ML IV SCH (09:00)
[2024-10-19] MEDS ORDERED: POTASSIUM CHLORIDE 20 MEQ/TAB PO SCH (09:00)
[2024-10-19 11:33] VITALS: BP 126/70
[2024-10-19 14:56] VITALS: BP 136/72
[2024-10-19 18:34] VITALS: BP 133/67
[2024-10-20 00:58] VITALS: BP 160/64
[2024-10-20 04:10] VITALS: BP 137/73
[2024-10-20 06:07] LABS: ALBUMIN 2.6 g/dL (3.2-5.0); BILIRUBIN, TOTAL 1.6 mg/dL (0.2-1.3); CREATININE 0.4 mg/dL (0.7-1.3); MAGNESIUM 1.6 mg/dL (1.6-2.3); POTASSIUM 3.2 mmol/l (3.5-5.1); TOTAL PROTEIN 5.6 g/dL (6.3-8.2)
[2024-10-20 07:20] VITALS: BP 115/62
[2024-10-20] MEDS ORDERED: MAGNESIUM-OXID400 MG PO (11:27)
[2024-10-20] MEDS ORDERED: METHIMAZOLE5 MG PO (11:27)
[2024-10-20] MEDS ORDERED: LASIX 40 MG TAB40 MG PO (11:27)
[2024-10-20] MEDS ORDERED: ASPIRIN ADULT L81 M2 PO (11:27)
[2024-10-20] MEDS ORDERED: POTASSIUM CHLO20 MEQ PO (11:28)
[2024-10-20] MEDS ORDERED: DOXYCYCLINE100 MG PO (11:29)
[2024-10-20 12:39] VITALS: BP 130/69
--- NOTE | 2024-10-20 13:52 | NUR ---
patient is discahrged home with DC instructions, vss. ambulatory and has a ride home.
== END 2024-10-20 13:53 | disposition home or self-care (01) | DRG 871 ==
LOC: ED 14:56 → ED-I 17:20 → ED 17:41 → MS2 17:42
PROVIDERS: Internal Medicine; Nurse Practitioner; Nurse Practitioner Family; ADMIT Internal Medicine; ATTEND Internal Medicine
DX: A41.9 Sepsis, unspecified organism (principal); J18.9 Pneumonia, unspecified organism; L03.115 Cellulitis of right lower limb; I11.0 Hypertensive heart disease with heart failure; I50.9 Heart failure, unspecified; I48.0 Paroxysmal atrial fibrillation; K70.10 Alcoholic hepatitis without ascites; E05.90 Thyrotoxicosis, unspecified without thyrotoxic crisis or storm; E83.42 Hypomagnesemia; D69.59 Other secondary thrombocytopenia; K70.31 Alcoholic cirrhosis of liver with ascites; F10.10 Alcohol abuse, uncomplicated; Z91.199 Patient's noncompliance with other medical treatment and regimen due to unspecified reason
CPT/HCPCS: J0692; J1650; J3370; J3475

== ENCOUNTER 2024-10-22 20:54 | Emergency (ER) | payer SELFPAY ==
[~2024-10-22] VITALS: Ht 294.6 cm; Wt 89.0 kg
[~2024-10-22 20:54] MED LIST changes: +DOXYCYCLINE100 MG PO; +LASIX 40 MG TAB40 MG PO; +MAGNESIUM-OXID400 MG PO; +POTASSIUM CHLO20 MEQ PO
[2024-10-22] MEDS ORDERED: DOXYCYCLINE HYCLATE 100 MG in SODIUM CHLORIDE 0.9% 100 ML IV ONE (21:55)
[2024-10-22] MEDS ORDERED: IPRATROPIUM-Albuterol 0.5MG-2.5MG/3 ML NEB ONE (21:55)
[2024-10-22] MEDS ORDERED: methylPREDNISolone SODIUM SUCC 125 MG/2 ML SDV IV ONE (21:55)
[2024-10-22 22:21] LABS: BASO% 0.3 % (0-3); EOS% 1.1 % (0-8); HEMATOCRIT 37.9 % (39.0-50.0); HEMOGLOBIN 12.3 g/dl (14.0-18.0); IMMATURE GRANULOCYTES 0.1 % (0.0-5.0); LYMPH% 4.7 % (15-41); MEAN CELL VOLUME 90.5 fL CALC (80.0-100.0); MEAN CORPUSCULAR HGB 29.4 pG CALC (26.0-32.0); MEAN CORPUSCULAR HGB CONC 32.5 g/dL CAL (32.0-36.0); MONO% 5.2 % (2-13); NEUT# 12.03 thou/uL (1.82-7.42); NEUT% 88.6 % (42-76); RED BLOOD COUNT 4.19 mill/uL (4.70-6.10); RED CELL DISTRI WIDTH 16.1 % (11.5-15.5)
[2024-10-22] MEDS ORDERED: KETOROLAC TROMETHAMINE 30 MG/ML SDV IV ONE (22:30)
[2024-10-22] MEDS ORDERED: ACETAMINOPHEN 500 MG TAB PO ONE (22:30)
[2024-10-22 22:32] LABS: CREATININE 0.5 mg/dL (0.7-1.3)
[2024-10-22 22:42] LABS: ALBUMIN 3.4 g/dL (3.2-5.0); POTASSIUM 4.2 mmol/l (3.5-5.1); TOTAL PROTEIN 7.3 g/dL (6.3-8.2)
[2024-10-23] MEDS ORDERED: VIBRAMYCIN100 M2 PO ×2 (00:02→11:46)
[2024-10-23] MEDS ORDERED: POTASSIUM CHLO20 ME1 PO ×2 (00:02→11:46)
[2024-10-23] MEDS ORDERED: VENTOLIN HFA IN (00:02)
[2024-10-23] MEDS ORDERED: LOPRESSOR50 M1 PO ×2 (00:02→11:46)
[2024-10-23] MEDS ORDERED: METHIMAZOLE5 MG PO ×2 (00:02→11:46)
[2024-10-23] MEDS ORDERED: LASIX 40 MG TAB40 MG PO ×2 (00:02→11:46)
[2024-10-23 00:14] VITALS: BP 152/84
== END 2024-10-23 00:14 | disposition home or self-care (01) | DRG 195 ==
LOC: ED 20:54
PROVIDERS: Family Medicine
DX: J18.9 Pneumonia, unspecified organism (principal); E05.90 Thyrotoxicosis, unspecified without thyrotoxic crisis or storm

== ENCOUNTER 2024-11-10 03:15 | Emergency (ER) | payer SELFPAY ==
[2024-11-10] VITALS (35 sets, daily range): BP systolic 99–182; BP diastolic 57–109
[~2024-11-10] VITALS: Ht 170.2 cm; Wt 82.0 kg
[~2024-11-10 03:15] MED LIST changes: +LOPRESSOR50 M1 PO; +POTASSIUM CHLO20 ME1 PO; +VENTOLIN HFA IN; +VIBRAMYCIN100 M2 PO
[2024-11-10] MEDS ORDERED: NALOXONE HCL 0.4 MG/ML 1ML AMP IV ONE (03:25)
[2024-11-10 04:01] LABS: BASO% 1.3 % (0-3); EOS% 6.9 % (0-8); IMMATURE GRANULOCYTES 0.4 % (0.0-5.0); LYMPH% 30.7 % (15-41); MEAN CELL VOLUME 91.2 fL CALC (80.0-100.0); MEAN CORPUSCULAR HGB 29.4 pG CALC (26.0-32.0); MEAN CORPUSCULAR HGB CONC 32.2 g/dL CAL (32.0-36.0); MONO% 11.7 % (2-13); NEUT# 2.27 thou/uL (1.82-7.42); RED BLOOD COUNT 4.87 mill/uL (4.70-6.10); RED CELL DISTRI WIDTH 15.4 % (11.5-15.5)
[2024-11-10 04:04] LABS: HEMATOCRIT 44.4 % (39.0-50.0); HEMOGLOBIN 14.3 g/dl (14.0-18.0)
[2024-11-10 04:09] LABS: ALBUMIN 3.5 g/dL (3.2-5.0); ALKALINE PHOSPHATASE 428 u/l (38-126); ANION GAP 11 (6-22 (CALC)); BILIRUBIN, TOTAL 1.3 mg/dL (0.2-1.3); BUN 16 mg/dL (9-20); BUN/CREATININE RATIO 28 (12-20 (CALC)); CARBON DIOXIDE 26 mmol/l (22-30); CHLORIDE 107 mmol/l (95-108); CREATININE 0.6 mg/dL (0.7-1.3); ESTIMATED GFR 115 ML/MIN (>=90 (CALC)); ETHYL ALCOHOL 0 mg/dl (0-30); SGOT/AST 76 u/l (17-59); SODIUM 140 mmol/l (137-146); TOTAL PROTEIN 7.6 g/dL (6.3-8.2)
[2024-11-10 04:15] LABS: URINE BILIRUBIN - DIPSTICK Negative (NEGATIVE); URINE BLOOD DIPSTICK Negative (NEGATIVE); URINE GLUCOSE - DIPSTICK Negative (NEGATIVE); URINE KETONE Negative (NEGATIVE); URINE LEUK ESTERASE Negative (NEGATIVE); URINE NITRITE - DIPSTICK Negative (Negative); URINE PROTEIN - DIPSTICK Negative (NEG-TRACE); URINE SPECIFIC GRAVITY 1.015
[2024-11-10 04:16] LABS: D-DIMER 1.1 mg/L (0.19-0.60); INTERNATIONAL NORMALIZED RATIO 1.2 RATIO (0.7-1.3)
[2024-11-10 04:18] LABS: PROTHROMBIN TIME 12.9 SECONDS (9.0-12.5)
[2024-11-10 04:19] LABS: URINE COLOR Yellow
[2024-11-10] MEDS ORDERED: SODIUM CHLORIDE 0.9% 1,000 ML IV ONE (04:36)
[2024-11-10] MEDS ORDERED: SUCCINYLCHOLINE CHLORIDE 20 MG/ML 10ML VIAL IV ONE (04:45)
[2024-11-10] MEDS ORDERED: ETOMIDATE 20 MG/10 ML SDV IV ONE (04:45)
[2024-11-10] MEDS ORDERED: MIDAZOLAM HCL 10 MG in SODIUM CHLORIDE 0.9% 90 ML IV ONE ×2 (05:05→08:00)
== END 2024-11-10 08:20 | DRG 443 ==
LOC: ED 03:15
PROVIDERS: Family Medicine
PROC: 0T9B70Z Drainage of Bladder with Drainage Device, Via Natural or Artificial Opening (ICD-10-PCS; principal; 2024-11-10)
PROC: 0BH17EZ Insertion of Endotracheal Airway into Trachea, Via Natural or Artificial Opening (ICD-10-PCS; 2024-11-10)
PROC: 0BH17EZ Insertion of Endotracheal Airway into Trachea, Via Natural or Artificial Opening (ICD-10-PCS; 2024-11-10)
PROC: 5A1935Z Respiratory Ventilation, Less than 24 Consecutive Hours (ICD-10-PCS; 2024-11-10)
DX: K76.82 Hepatic encephalopathy (principal); R09.02 Hypoxemia; I10 Essential (primary) hypertension; I48.91 Unspecified atrial fibrillation; E05.90 Thyrotoxicosis, unspecified without thyrotoxic crisis or storm; Z87.01 Personal history of pneumonia (recurrent); Z20.822 Contact with and (suspected) exposure to COVID-19
CPT/HCPCS: Q9967

== ENCOUNTER 2024-11-20 01:10 | Emergency (ER) | payer SELFPAY ==
[~2024-11-20] VITALS: Ht 170.2 cm; Wt 80.0 kg
[2024-11-20] MEDS ORDERED: MULTIPLE VITAMIN 10 ML,THIAMINE HCL 100 MG in SODIUM CHLORIDE 0.9% 1,000 ML IV ONE (01:20)
[2024-11-20 01:31] LABS: BASO% 0.7 % (0-3); EOS% 4.9 % (0-8); HEMATOCRIT 42.1 % (39.0-50.0); HEMOGLOBIN 13.6 g/dl (14.0-18.0); IMMATURE GRANULOCYTES 0.2 % (0.0-5.0); MEAN CELL VOLUME 90.9 fL CALC (80.0-100.0); MEAN CORPUSCULAR HGB 29.4 pG CALC (26.0-32.0); MEAN CORPUSCULAR HGB CONC 32.3 g/dL CAL (32.0-36.0); NEUT# 3.65 thou/uL (1.82-7.42); NEUT% 62.2 % (42-76); RED BLOOD COUNT 4.63 mill/uL (4.70-6.10); RED CELL DISTRI WIDTH 15.4 % (11.5-15.5)
[2024-11-20 01:50] LABS: ALBUMIN 3.3 g/dL (3.2-5.0); ALKALINE PHOSPHATASE 454 u/l (38-126); ANION GAP 12 (6-22 (CALC)); BILIRUBIN, TOTAL 1.5 mg/dL (0.2-1.3); BUN 14 mg/dL (9-20); BUN/CREATININE RATIO 32 (12-20 (CALC)); CARBON DIOXIDE 23 mmol/l (22-30); CHLORIDE 108 mmol/l (95-108); CREATININE 0.4 mg/dL (0.7-1.3); ESTIMATED GFR 130 ML/MIN (>=90 (CALC)); ETHYL ALCOHOL 0 mg/dl (0-30); MAGNESIUM 1.8 mg/dL (1.6-2.3); POTASSIUM 3.8 mmol/l (3.5-5.1); SGOT/AST 50 u/l (17-59); SODIUM 139 mmol/l (137-146); TOTAL PROTEIN 7.1 g/dL (6.3-8.2)
[2024-11-20] MEDS ORDERED: LACTULOSE 20 GM/30 ML UDC PO ONE (02:45)
[2024-11-20 03:00] VITALS: BP 105/62
[2024-11-20 03:15] VITALS: BP 125/73
[2024-11-20 03:30] VITALS: BP 109/69
[2024-11-20 03:45] VITALS: BP 118/73
[2024-11-20] MEDS ORDERED: SODIUM CHLORIDE 0.9% 1,000 ML IV ONE (03:45)
[2024-11-20 04:20] LABS: URINE BILIRUBIN - DIPSTICK Negative (NEGATIVE); URINE BLOOD DIPSTICK Negative (NEGATIVE); URINE GLUCOSE - DIPSTICK Negative (NEGATIVE); URINE KETONE Negative (NEGATIVE); URINE LEUK ESTERASE Negative (NEGATIVE); URINE NITRITE - DIPSTICK Negative (Negative); URINE PROTEIN - DIPSTICK Negative (NEG-TRACE); URINE SPECIFIC GRAVITY 1.015
[2024-11-20 04:21] LABS: URINE COLOR Yellow
[2024-11-20] MEDS ORDERED: KRISTALOSE20 GM PO (05:33)
[2024-11-20 07:18] VITALS: BP 118/73
== END 2024-11-20 07:47 | disposition home or self-care (01) | DRG 443 ==
LOC: ED 01:10
PROVIDERS: Family Medicine
DX: K76.82 Hepatic encephalopathy (principal); I10 Essential (primary) hypertension; I48.91 Unspecified atrial fibrillation; E05.90 Thyrotoxicosis, unspecified without thyrotoxic crisis or storm
CPT/HCPCS: J3411

== ENCOUNTER 2024-11-21 02:48 | Inpatient (IN) | payer SELFPAY ==
[2024-11-21] VITALS (8 sets, daily range): BP systolic 100–155; BP diastolic 60–84
[~2024-11-21] VITALS: Ht 170.2 cm; Wt 80.0 kg
[~2024-11-21 02:48] MED LIST changes: +KRISTALOSE20 GM PO
--- NOTE | 2024-11-21 02:48 | NUR ---
Pt to ER room 1 via EMS
[2024-11-21] MEDS ORDERED: SODIUM CHLORIDE 0.9% 1,000 ML IV ONE (03:05)
[2024-11-21] MEDS ORDERED: LACTULOSE 20 GM/30 ML UDC PO ONE (03:10)
--- NOTE | 2024-11-21 03:30 | NUR ---
Pt ambulated out or ER room one naked asking for the bathroom. Pt asked to wear gown, pt delcined. Pt proceded to ambulate to the bathroom and voided on the floor before returning to room. Pt attempted to remove IV from left arm and eas told to leave IV site alone by nursing staff. Pt proceded to sit on chair available in the room and still refuses to wear hospital gown.
[2024-11-21 03:55] LABS: BASO% 1.1 % (0-3); EOS% 15.2 % (0-8); HEMOGLOBIN 13.3 g/dl (14.0-18.0); IMMATURE GRANULOCYTES 0.2 % (0.0-5.0); LYMPH% 30.8 % (15-41); MEAN CELL VOLUME 92.5 fL CALC (80.0-100.0); MEAN CORPUSCULAR HGB 29.3 pG CALC (26.0-32.0); MEAN CORPUSCULAR HGB CONC 31.7 g/dL CAL (32.0-36.0); MONO% 9.5 % (2-13); NEUT# 2.05 thou/uL (1.82-7.42); NEUT% 43.2 % (42-76); RED BLOOD COUNT 4.54 mill/uL (4.70-6.10); RED CELL DISTRI WIDTH 15.8 % (11.5-15.5)
[2024-11-21 04:00] LABS: ALBUMIN 3.6 g/dL (3.2-5.0); ALKALINE PHOSPHATASE 412 u/l (38-126); ANION GAP 12 (6-22 (CALC)); BILIRUBIN, TOTAL 1.2 mg/dL (0.2-1.3); BUN 18 mg/dL (9-20); BUN/CREATININE RATIO 34 (12-20 (CALC)); CARBON DIOXIDE 22 mmol/l (22-30); CHLORIDE 111 mmol/l (95-108); CREATININE 0.5 mg/dL (0.7-1.3); ESTIMATED GFR 122 ML/MIN (>=90 (CALC)); ETHYL ALCOHOL 0 mg/dl (0-30); POTASSIUM 4.1 mmol/l (3.5-5.1); SGOT/AST 68 u/l (17-59); SODIUM 141 mmol/l (137-146); TOTAL PROTEIN 7.4 g/dL (6.3-8.2)
--- NOTE | 2024-11-21 04:30 | NUR ---
Reassessment of patient completed. No distress noted. Pt remains naked, and refuses to wear hospital gown.
--- NOTE | 2024-11-21 05:30 | NUR ---
Reassessment of patient completed. No distress noted. Pt remains naked, and refuses to wear hopsital gown.
--- NOTE | 2024-11-21 06:30 | NUR ---
Pt laying in bed resting naked, no distress noted at this time.
[2024-11-21] MEDS ORDERED: ONDANSETRON 4 MG/TAB ODT PO PRN (06:50)
[2024-11-21] MEDS ORDERED: ALUM & MAG HYDROX-SIMETHICONE 30 ML PO PRN (06:50)
[2024-11-21] MEDS ORDERED: IBUPROFEN 800 MG/TAB PO PRN (06:50)
[2024-11-21] MEDS ORDERED: FAMOTIDINE 10MG/ML 2ML SDV IV PRN (06:50)
[2024-11-21] MEDS ORDERED: Polyethylene Glycol 3350 17 GM/PKT PO PRN (06:50)
[2024-11-21] MEDS ORDERED: ONDANSETRON HCl 4 MG/2 ML SDV IV PRN ×2 (06:50→08:45)
[2024-11-21] MEDS ORDERED: SODIUM CHLORIDE 0.9% 1,000 ML IV PRN (06:50)
--- NOTE | 2024-11-21 07:00 | NUR ---
PT REPORT RECIEVED FROM MIKAYLA AKHTAR. ASSUMED CARE OF PT.
--- NOTE | 2024-11-21 07:36 | NUR ---
PT ASSISTED TO CLEAN UP AND GET DRESSED.
[2024-11-21] MEDS ORDERED: LACTULOSE 20 GM/30 ML UDC PO SCH ×2 (08:00→09:00)
[2024-11-21] MEDS ORDERED: ENOXAPARIN SODIUM 40 MG/0.4 ML SYR SC SCH (08:00)
--- NOTE | 2024-11-21 08:41 | NUR ---
ASSISTED PT TO THE RESTROOM. NO NEEDS AT THIS TIME.
[2024-11-21] MEDS ORDERED: ACETAMINOPHEN 325 MG/TAB PO PRN (08:45)
--- NOTE | 2024-11-21 10:22 | NUR ---
PT RESTING, NO NEEDS AT THIS TIME.
--- NOTE | 2024-11-21 11:10 | NUR ---
PT OFFERED WATER AND DECLINES AT THIS TIME.
--- NOTE | 2024-11-21 12:44 | NUR ---
PT PROVIDED WITH MEAL TRAY, NO NEEDS AT THIS TIME.
[2024-11-21] MEDS ORDERED: LORazepam 1 MG/TAB PO PRN (13:00)
--- NOTE | 2024-11-21 13:23 | NUR ---
PT REPORT TO HAYES EARL.
--- NOTE | 2024-11-21 14:29 | NUR ---
patient weight, and vital signs; weight-82.3kg temp-97.0 p-83 resp-20 b/p-127/73 o2-100 on room air.
--- NOTE | 2024-11-21 16:45 | NUR ---
PT WAS ADMITTED TODAY AT 1351 TO THE UNIT. PT HAS A IV SITE 20 GAUGE TO RIGHT A/C. PT IS [place]IAN SPEAKING AND CAN SPEAK ALITTLE NEPALI. PT WAS FOUND ON THE GROUND IN SOMEONE FRONT YARD. HE HAS ABRASION ON HANDS AND LEGS. PT IS LETHARGIC AND STATES HE IS VERY TIRED. IVF IS INFUSION WELL. PT HAS HAD 3 BOWEL MOVEMENT SINCE ADMISSION. PT WAS EDUCATED ON THE USE OF HIS CALL MARTINEZ AND FALL SAFETY IN [place]. PT VERBALIZED UNDERSTANDING BUT CONTINUES TO NEED RE ORINTATED TO HIS ROOM AND SAFETY. PT CALL MARTINEZ IS AT REACH. ALL SAFETY MEASURES IN PLACE. NURSING WILL CONTINUE TO MONITOR.
[2024-11-22 05:32] LABS: BASO% 1.1 % (0-3); EOS% 12.2 % (0-8); HEMATOCRIT 38.5 % (39.0-50.0); HEMOGLOBIN 12.9 g/dl (14.0-18.0); LYMPH% 36.1 % (15-41); MEAN CELL VOLUME 90.4 fL CALC (80.0-100.0); MEAN CORPUSCULAR HGB 30.3 pG CALC (26.0-32.0); MEAN CORPUSCULAR HGB CONC 33.5 g/dL CAL (32.0-36.0); MONO% 9.6 % (2-13); NEUT# 1.89 thou/uL (1.82-7.42); RED BLOOD COUNT 4.26 mill/uL (4.70-6.10); RED CELL DISTRI WIDTH 15.5 % (11.5-15.5)
[2024-11-22 05:40] LABS: ALBUMIN 2.9 g/dL (3.2-5.0); BILIRUBIN, TOTAL 1.3 mg/dL (0.2-1.3); CREATININE 0.4 mg/dL (0.7-1.3); MAGNESIUM 1.8 mg/dL (1.6-2.3); POTASSIUM 3.3 mmol/l (3.5-5.1); TOTAL PROTEIN 6.4 g/dL (6.3-8.2)
[2024-11-22 07:29] VITALS: BP 136/79
--- NOTE | 2024-11-22 08:29 | NUR ---
SHIFT CHANGE REPORT, PT AWAKE ALERT AND ORIENTED SITTING UP AT BEDSIDE HAVING MEAL, NO C/O DISCOMFORT, IVF INFUSING, CALL MARTINEZ IN REACH AND BED LOCKED IN LOWEST POSITION.
[2024-11-22] MEDS ORDERED: THIAMINE HCL 100 MG TAB PO SCH (09:00)
[2024-11-22] MEDS ORDERED: FOLIC ACID 1 MG/TAB PO SCH (09:00)
[2024-11-22] MEDS ORDERED: POTASSIUM CHLORIDE 20 MEQ/TAB PO SCH (11:00)
[2024-11-22] MEDS ORDERED: PANTOPRAZOLE SODIUM Sesquihydr 40 MG/TAB PO SCH (11:00)
--- NOTE | 2024-11-22 12:21 | NUR ---
SITTING UPO IN RECLINER AT THIS TIME HAVING MEAL, NO NEW COMPLAIN.
[2024-11-22 14:56] VITALS: BP 135/80
--- NOTE | 2024-11-22 15:15 | NUR ---
RECEIVED REPORT FROM MARCOS AND PT SEEN AMBULATING HALLWAY WITH IV PUMP AND NO COMPLAINTS. 1540- PT SEEN SITTING ON COUCH IN ROOM WITH NO COMPLAINTS OR CONCERNS. IVF PATENT TO LEFT FA IV SITE. LACTULOSE DOSE GIVEN. WILL MONITOR.
[2024-11-22 16:52] LABS: URINE BILIRUBIN - DIPSTICK Negative (NEGATIVE); URINE BLOOD DIPSTICK Negative (NEGATIVE); URINE COLOR Yellow; URINE GLUCOSE - DIPSTICK Negative (NEGATIVE); URINE KETONE Negative (NEGATIVE); URINE LEUK ESTERASE Negative (NEGATIVE); URINE NITRITE - DIPSTICK Negative (Negative); URINE PROTEIN - DIPSTICK Negative (NEG-TRACE)
--- NOTE | 2024-11-22 18:45 | NUR ---
PT RESTING IN BED WITHOUT CHANGES. IV PATENT. NO COMPLAINTS. REPORT GIVEN TO LISETH.
[2024-11-22 19:46] VITALS: BP 129/78
--- NOTE | 2024-11-22 20:10 | NUR ---
PT RESTING IN BED NO DISTRESS NOTED ON ASSESSMENT. PT REPORTS NO PAIN AT THIS TIME. IV INFUSION ONGOING WORKING PROPERLY. CALL LIGHT WITHIN REACH. PLAN OF CARE ONGOING.
[2024-11-22] MEDS ORDERED: ENOXAPARIN SODIUM 40 MG/0.4 ML SYR SC SCH (21:00)
--- NOTE | 2024-11-23 00:07 | NUR ---
PT SLEEPING NO DISTRESS NOTED IV INFUSION ONGOING WORKING PROPERLY. CALL LIGHT WITHIN REACH. PLAN OF CARE ONGOING.
--- NOTE | 2024-11-23 04:30 | NUR ---
PT SLEEPING NO DISTRESS NOTED ON EXAM. CALL LIGHT WITHIN REACH. PLAN OF CARE ONGOING.
[2024-11-23 05:19] VITALS: BP 123/67
[2024-11-23 05:59] LABS: BASO% 0.7 % (0-3); EOS% 13.6 % (0-8); HEMATOCRIT 37.2 % (39.0-50.0); HEMOGLOBIN 12.4 g/dl (14.0-18.0); LYMPH% 38.2 % (15-41); MEAN CELL VOLUME 90.7 fL CALC (80.0-100.0); MEAN CORPUSCULAR HGB 30.2 pG CALC (26.0-32.0); MEAN CORPUSCULAR HGB CONC 33.3 g/dL CAL (32.0-36.0); MONO% 8.4 % (2-13); NEUT# 1.57 thou/uL (1.82-7.42); NEUT% 39.1 % (42-76); RED BLOOD COUNT 4.1 mill/uL (4.70-6.10); RED CELL DISTRI WIDTH 14.9 % (11.5-15.5)
[2024-11-23 06:20] LABS: ALBUMIN 2.8 g/dL (3.2-5.0); BILIRUBIN, TOTAL 1.2 mg/dL (0.2-1.3); CREATININE 0.5 mg/dL (0.7-1.3); MAGNESIUM 1.6 mg/dL (1.6-2.3); POTASSIUM 3.3 mmol/l (3.5-5.1); TOTAL PROTEIN 6.3 g/dL (6.3-8.2)
[2024-11-23 06:50] VITALS: BP 109/70
== END 2024-11-23 13:17 | disposition home or self-care (01) | DRG 442 ==
LOC: ED 02:48 → ED-I 03:50 → ED 03:50 → ED-I 06:15 → ED 06:47 → MS2 06:48
PROVIDERS: Family Medicine; Nurse Practitioner Family; ADMIT Internal Medicine; ATTEND Internal Medicine
DX: K76.82 Hepatic encephalopathy (principal); Z59.00 Homelessness unspecified; E87.6 Hypokalemia; K70.10 Alcoholic hepatitis without ascites; F10.10 Alcohol abuse, uncomplicated; I48.0 Paroxysmal atrial fibrillation; E05.90 Thyrotoxicosis, unspecified without thyrotoxic crisis or storm; T50.916A Underdosing of multiple unspecified drugs, medicaments and biological substances, initial encounter; Z91.120 Patient's intentional underdosing of medication regimen due to financial hardship; Z91.190 Patient's noncompliance with other medical treatment and regimen due to financial hardship
CPT/HCPCS: J1650; Q9967

== ENCOUNTER 2024-12-03 18:49 | Emergency (ER) | payer SELFPAY ==
[~2024-12-03] VITALS: Ht 170.2 cm; Wt 83.9 kg
[2024-12-03] MEDS ORDERED: ISOVUE-300 (Iopamidol) 100 ML SDV IV ONE ×2 (18:55)
[2024-12-03 19:03] LABS: BASO% 0.6 % (0-3); EOS% 13.7 % (0-8); HEMATOCRIT 39.8 % (39.0-50.0); IMMATURE GRANULOCYTES 0.2 % (0.0-5.0); LYMPH% 44.1 % (15-41); MEAN CELL VOLUME 90.2 fL CALC (80.0-100.0); MEAN CORPUSCULAR HGB 29.5 pG CALC (26.0-32.0); MEAN CORPUSCULAR HGB CONC 32.7 g/dL CAL (32.0-36.0); MONO% 12.7 % (2-13); NEUT# 1.78 thou/uL (1.82-7.42); NEUT% 28.7 % (42-76); RED BLOOD COUNT 4.41 mill/uL (4.70-6.10); RED CELL DISTRI WIDTH 15.2 % (11.5-15.5)
[2024-12-03 19:15] LABS: ALKALINE PHOSPHATASE 462 u/l (38-126); BILIRUBIN, TOTAL 1.2 mg/dL (0.2-1.3); BUN 16 mg/dL (9-20); BUN/CREATININE RATIO 25 (12-20 (CALC)); CARBON DIOXIDE 22 mmol/l (22-30); CHLORIDE 111 mmol/l (95-108); CREATININE 0.6 mg/dL (0.7-1.3); ESTIMATED GFR 115 ML/MIN (>=90 (CALC)); ETHYL ALCOHOL 0 mg/dl (0-30); LIPASE 72 u/l (23-300); SGOT/AST 75 u/l (17-59); SODIUM 139 mmol/l (137-146); TOTAL PROTEIN 7.2 g/dL (6.3-8.2)
[2024-12-03 19:18] LABS: ALBUMIN 3.5 g/dL (3.2-5.0); ANION GAP 10 (6-22 (CALC)); POTASSIUM 4.1 mmol/l (3.5-5.1)
[2024-12-03 19:50] LABS: URINE BLOOD DIPSTICK Negative (NEGATIVE); URINE GLUCOSE - DIPSTICK Negative (NEGATIVE); URINE KETONE Negative (NEGATIVE); URINE LEUK ESTERASE Negative (NEGATIVE); URINE NITRITE - DIPSTICK Negative (Negative); URINE PH 6.5 (4.5-8.0); URINE PROTEIN - DIPSTICK Negative (NEG-TRACE)
[2024-12-03 19:53] LABS: URINE COLOR Yellow
[2024-12-03 22:00] VITALS: BP 109/64
== END 2024-12-03 22:00 | disposition home or self-care (01) | DRG 605 ==
LOC: ED 18:49
PROVIDERS: Nurse Practitioner
DX: S80.02XA Contusion of left knee, initial encounter (principal); S80.01XA Contusion of right knee, initial encounter; S20.219A Contusion of unspecified front wall of thorax, initial encounter; S80.212A Abrasion, left knee, initial encounter; S80.211A Abrasion, right knee, initial encounter; S20.319A Abrasion of unspecified front wall of thorax, initial encounter; S09.90XA Unspecified injury of head, initial encounter; V18.0XXA Pedal cycle driver injured in noncollision transport accident in nontraffic accident, initial encounter; Y93.55 Activity, bike riding
CPT/HCPCS: Q9967